=== PATIENT | male | born 1935 | race Caucasian/White ===

== ENCOUNTER 2019-04-25 08:29 | Emergency (ER) | payer MEDICARE ==
[~2019-04-25] VITALS: Ht 175.2 cm; Wt 75.9 kg
[~2019-04-25 08:29] MED LIST: CALC1CAP5 PO; CPR500T PO; DOCU-161 PO; DOXA2TAB2 PO; MULT-608 PO; PSYL1PAC15 PO; [UNRECOGNIZED DRUG - CODE] PO; [UNRECOGNIZED DRUG - REMARK]
--- NOTE | 2019-04-25 08:42 | ED Fall/Injury ---
General Stated Complaint: FALL Source: patient, family Exam Limitations: no limitations History of Present Illness Date Seen by Provider: Apr 25, 2019 Time Seen by Provider: 08:40 Initial Comments 83-year-old male presents with a laceration over his left eye. Patient reports that around 09/06/29 he was getting up out of bed when he thinks he lost his balance and fell and hit the corner of his nightstand right next to his bed. He had not completely stood up what happened. There is no loss of consciousness. There was mild bleeding at that time which was cleaned up by the [facility] with Steri-Strip. He denies any other injuries. He denies any chest pain, shortness of breath, dizziness or other symptoms prior to this event Allergies and Home Medications Allergies Coded Allergies: Penicillins (Verified Allergy, Unknown, 04/25/19) Home Medications Calcium Carbonate/Vitamin D3 1 Each Capsule, 2 EACH PO DAILY, (Reported) Ciprofloxacin 500 Mg Tablet, 1 TAB PO BID FOR INFECTION Prescribed by: ZAYDA HUTCHINS on 11/12/09 1202 Docusate Sodium 100 Mg Capsule, 200 MG PO HS, (Reported) Doxazosin Mesylate 2 Mg Tablet, 2 MG PO DAILY, (Reported) Hyoscyamine 0.15 Mg Tablet, 0.375 MG PO 1-2 BID, (Reported) Multivitamins 1 Tab Tablet, 1 TAB PO DAILY, (Reported) Psyllium 1 Pkt Packet, 1 PKT PO DAILY, (Reported) Patient Home Medication List Home Medication List Reviewed: Yes Review of Systems Review of Systems Constitutional: No chills, No fever Ears, Nose, Mouth, Throat: see HPI Respiratory: No cough, No short of breath Cardiovascular: No chest pain, No palpitations Gastrointestinal: No abdominal pain, No nausea, No vomiting Genitourinary: no symptoms reported Musculoskeletal: see HPI Skin: see HPI Past Ssszdfb-Gpqtag-Niyaih Hx Past Med/Social Hx: Reviewed Nursing Past Med/Soc Hx Past Medical History Reproductive Disorders: No Physical Exam Vital Signs Vital Signs - First Documented 04/25/19 08:43 Temp 36.5 Pulse 68 Resp 18 B/P (MAP) 144/74 (97) Pulse Ox 95 O2 Delivery Room Air Capillary Refill : Height, Weight, BMI Height: '" Weight: lbs. oz. kg; BMI Method:Stated General Appearance: WD/WN, no apparent distress HEENT: PERRL/EOMI, TMs normal, other (small laceration above the left eye approximately 2.5 cm with Steri-Strips are in place) Neck: non-tender Cardiovascular: regular rate, rhythm Respiratory: chest non-tender, lungs clear, normal breath sounds Gastrointestinal: non tender, soft Back: normal inspection Extremities: normal range of motion, non-tender Neurologic/Psychiatric: no motor/sensory deficits, alert, normal mood/affect, oriented x 3 Skin: other (3 cm laceration left eyebrow ) Procedures/Interventions Wound Location: Eye (left eyebrow ) Wound Length (cm): 3 Wound's Depth, Shape: superficial Wound Explored: no foreign body removed Other Closure Supply: Steri Strip 1/2", Wound Adhesive Progress Patient tolerated well with no immediate complications Progress/Results/Core Measures Results/Orders My Orders Orders - SHERRI POWELL DO Ct Head Wo (04/25/19 08:42) Dipht,Pertuss(Acell),Tet Adult (Boostrix (04/25/19 09:00) Vital Signs/I&O 04/25/19 08:43 Temp 36.5 Pulse 68 Resp 18 B/P (MAP) 144/74 (97) Pulse Ox 95 O2 Delivery Room Air Departure Impression Primary Impression: Laceration of left eyebrow without complication Qualified Codes: S01.112A - Laceration without foreign body of left eyelid and periocular area, initial encounter Disposition: 01 HOME, SELF-CARE Condition: Stable Departure-Patient Inst. Referrals: SELF,SIL MAYORGA (PCP/Family) Primary Care Physician Patient Instructions: Laceration Repair With Glue (DC) Add. Discharge Instructions: Emergency department focuses on treating and ruling out life-threatening diseases. Whenever possible, a diagnosis is given. However, most patients are given an impression based on their history, physical exam, and workup during your brief time in the ER. Information about probable diagnosis and other educational material has been provided. Please take the time to read and understand this information. It is very important that you follow up with a physician as discussed during the visit today. Failure to adhere to your follow-up instructions may lead to severe disability, injury, or so please make sure to keep your appointments or obtain one as requested. Please keep in mind the emergency department is not designed to your primary care or "family doctor" and nonurgent issues are best evaluated by an outpatient physician SHERRI POWELL DO Apr 25, 2019 08:42
[2019-04-25] MEDS ORDERED: TETANUS & DIPHTHERIA TOX,ADULT 0.5 ML (TENIVAC) IM ONE (08:45)
--- NOTE | 2019-04-25 08:59 | Diagnostic Imaging Report ---
PROCEDURE: CT head without contrast. TECHNIQUE: Multiple contiguous axial images were obtained through the brain without the use of intravenous contrast. Auto Exposure Controls were utilized during the CT exam to meet ALARA standards for radiation dose reduction. INDICATION: Fall. Scalp contusion overlying the left forehead. COMPARISON: None. FINDINGS: No large acute territorial ischemia, mass, or hemorrhage. Chronic microvascular disease is seen in the periventricular and subcortical white matter. The ventricles and cortical sulci are prominent, consistent with generalized volume loss. The basilar cisterns are patent and unremarkable. The calvarium is intact. A small scalp hematoma seen overlying the left forehead. The visualized paranasal sinuses are clear. IMPRESSION: 1. No large acute territorial ischemia, mass, or hemorrhage. 2. Chronic microvascular disease. 3. Generalized volume loss. Dictated by: Dictated on workstation # [id number]
[2019-04-25] MEDS ORDERED: TETANUS,DIPTH,PERTUSS P/F (BOOSTRIX) 0.5 ML VIAL IM ONE (09:00)
[2019-04-25 09:20] VITALS: BP 144/74
== END 2019-04-25 09:20 | disposition home or self-care (01) ==
LOC: EDUNIT# 08:29 → ER FS 08:31
DX: S01.112A Laceration without foreign body of left eyelid and periocular area, initial encounter (principal); Z88.0 Allergy status to penicillin; Z23 Encounter for immunization; W18.39XA Other fall on same level, initial encounter; W22.8XXA Striking against or struck by other objects, initial encounter
CPT/HCPCS: 70450; 90471; 90715

== ENCOUNTER 2019-07-01 09:31 | Emergency (ER) | payer MEDICARE ==
[~2019-07-01] VITALS: Ht 175 cm; Wt 70.0 kg
[2019-07-01] MEDS ORDERED: LIDOCAINE 1% INJ 20 ML 20 ML VIAL INJ STA (09:48)
--- NOTE | 2019-07-01 09:57 | ED Fall/Injury ---
General Chief Complaint: Trauma-Non Activation Stated Complaint: FALL Source: patient, EMS History of Present Illness Date Seen by Provider: Jul 01, 2019 Time Seen by Provider: 09:31 Initial Comments 83-year-old male presenting with complaints of having a fall at [facility]. He states that he had gotten up to go the bathroom and as he was maintaining out of the bathroom he had gotten to see and fell. He has a skin tear to his right hand and a laceration to his right eyebrow. He denies losing consciousness or getting knocked out. He has no new numbness or weakness. He has Parkinson's and has a tremor from that. He denies any difficulty with his vision since the fall. He has no nausea or vomiting. Allergies and Home Medications Allergies Coded Allergies: Penicillins (Verified Allergy, Unknown, 04/25/19) Home Medications Calcium Carbonate/Vitamin D3 1 Each Capsule, 2 EACH PO DAILY, (Reported) Ciprofloxacin 500 Mg Tablet, 1 TAB PO BID FOR INFECTION Prescribed by: ZYADA HUTCHINS on 11/12/09 1202 Docusate Sodium 100 Mg Capsule, 200 MG PO HS, (Reported) Doxazosin Mesylate 2 Mg Tablet, 2 MG PO DAILY, (Reported) Hyoscyamine 0.15 Mg Tablet, 0.375 MG PO 1-2 BID, (Reported) Multivitamins 1 Tab Tablet, 1 TAB PO DAILY, (Reported) Psyllium 1 Pkt Packet, 1 PKT PO DAILY, (Reported) Patient Home Medication List Home Medication List Reviewed: Yes Review of Systems Review of Systems Constitutional: No chills, No diaphoresis; dizziness (right before he fell); No fever Eyes: Denies Blindness, Denies Blurred Vision, Denies Drainage, Denies Decreased Acuity, Denies Photophobia Ears, Nose, Mouth, Throat: denies ear pain, denies ear discharge, denies nose pain, denies nose discharge, denies epistaxis Respiratory: No cough, No short of breath Cardiovascular: No chest pain, No palpitations Gastrointestinal: No abdominal pain, No diarrhea, No nausea, No vomiting Genitourinary: No dysuria, No pain Musculoskeletal: No back pain, No joint pain, No neck pain Skin: other (skin tear to right hand and laceration to right eyebrown since fall) Psychiatric/Neurological: Denies Headache, Denies Numbness; Tremors (chronic from parkinson's) Past Rmlesqk-Vygrqi-Jzhquu Hx Past Med/Social Hx: Reviewed Nursing Past Med/Soc Hx Patient Social History 2nd Hand Smoke Exposure: No Recent Foreign Travel: Yes Recent Hopitalizations: No Immunizations Up To Date Tetanus Booster (TDap): Unknown Seasonal Allergies Seasonal Allergies: No Past Medical History Surgeries: Yes (Hernia Repair) Tonsillectomy Respiratory: No Cardiac: Yes Hypertension 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 oz. 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, alert, normal mood/affect, oriented x 3 Skin: normal color, warm/dry Di Coma Score Best Eye Response: (4) Open Spontaneously Best Verbal Response: (5) Oriented Best Motor Response: (6) Obeys Commands [place] Total: 15 Procedures/Interventions Wound Location: Face (right eyebrow) Wound Length (cm): 1.4 Wound's Depth, Shape: sub Q Wound Explored: clean Anesthesia: 1% Lidocaine Volume Anesthetic (ccs): 3 Suture: Prolene Suture Size: 5-0 Number of Sutures: 4 Layer Closure?: 1 Sterile Dressing Applied?: Yes Progress After obtaining informed consent from the patient the wound was anesthetized with 1% plain lidocaine. Then using chlorhexidine and sterile saline the wound was cleaned with gauze. Used 5-0 Prolene to approximate the wound edges was simple interrupted stitches. He had a total of 4 stitches placed to approximate the wound edges. He tolerated the procedure well without any immediate complication. Counseled on follow-up and return precautions. Will apply antibiotic ointment and sterile dressing. Have the sutures removed in 5-7 days. Progress/Results/Core Measures Results/Orders Lab Results Laboratory Tests Test 07/01/19 09:45 07/01/19 11:15 Range/Units White Blood Count 8.6 4.3-11.0 10^3/uL Red Blood Count 4.34 L 4.35-5.85 10^6/uL Hemoglobin 13.5 13.3-17.7 G/DL Hematocrit 40 40-54 % Mean Corpuscular Volume 92 80-99 FL Mean Corpuscular Hemoglobin 31 25-34 PG Mean Corpuscular Hemoglobin Concent 34 32-36 G/DL Red Cell Distribution Width 13.2 10.0-14.5 % Platelet Count 242 130-400 10^3/uL Mean Platelet Volume 10.0 7.4-10.4 FL Neutrophils (%) (Auto) 64 42-75 % Lymphocytes (%) (Auto) 22 12-44 % Monocytes (%) (Auto) 10 0-12 % Eosinophils (%) (Auto) 3 0-10 % Basophils (%) (Auto) 1 0-10 % Neutrophils # (Auto) 5.6 1.8-7.8 X 10^3 Lymphocytes # (Auto) 1.9 1.0-4.0 X 10^3 Monocytes # (Auto) 0.8 0.0-1.0 X 10^3 Eosinophils # (Auto) 0.3 0.0-0.3 10^3/uL Basophils # (Auto) 0.1 0.0-0.1 10^3/uL Sodium Level 130 L 135-145 MMOL/L Potassium Level 4.2 3.6-5.0 MMOL/L Chloride Level 93 L 98-107 MMOL/L Carbon Dioxide Level 28 21-32 MMOL/L Anion Gap 9 5-14 MMOL/L Blood Urea Nitrogen 25 H 7-18 MG/DL Creatinine 0.96 0.60-1.30 MG/DL Estimat Glomerular Filtration Rate > 60 BUN/Creatinine Ratio 26 Glucose Level 103 70-105 MG/DL Calcium Level 9.6 8.5-10.1 MG/DL Corrected Calcium 9.6 8.5-10.1 MG/DL Total Bilirubin 0.5 0.1-1.0 MG/DL Aspartate Amino Transf (AST/SGOT) 11 5-34 U/L Alanine Aminotransferase (ALT/SGPT) < 5 0-55 U/L Alkaline Phosphatase 67 40-136 U/L Total Protein 7.1 6.4-8.2 GM/DL Albumin 4.0 3.2-4.5 GM/DL Urine Color YELLOW Urine Clarity CLEAR Urine pH 7.5 5-9 Urine Specific [place] 1.015 L 1.016-1.022 Urine Protein NEGATIVE NEGATIVE Urine Glucose (UA) NEGATIVE NEGATIVE Urine Ketones NEGATIVE NEGATIVE Urine Nitrite NEGATIVE NEGATIVE Urine Bilirubin NEGATIVE NEGATIVE Urine Urobilinogen 0.2 < = 1.0 MG/DL Urine Leukocyte Esterase NEGATIVE NEGATIVE Urine RBC (Auto) NEGATIVE NEGATIVE Urine RBC NONE /HPF Urine WBC 0-2 /HPF Urine Squamous Epithelial Cells NONE /HPF Urine Crystals NONE /LPF Urine Bacteria NEGATIVE /HPF Urine Casts NONE /LPF Urine Mucus NONE /LPF Urine Culture Indicated NO My Orders Orders - ABDOULAYE COYNE MD Cbc With Automated Diff (07/01/19 09:48) Comprehensive Metabolic Panel (07/01/19 09:48) Ekg Tracing (07/01/19 09:48) Continuous Ekg Monitoring (07/01/19 09:48) Ct Head/Cervical Spine Wo (07/01/19 09:48) Lidocaine 1% Inj 20 Ml (Xylocaine 1% Inj (07/01/19 09:48) Suture Set At Bedside (07/01/19 09:48) Dipht,Pertuss(Acell),Tet Adult (Boostrix (07/01/19 10:00) Ua Culture If Indicated (07/01/19 09:50) Ns Iv 500 Ml (Sodium Chloride 0.9%) (07/01/19 10:15) Medications Given in ED Current Medications Medications Dose Ordered Sig/Reyes Route Start Time Stop Time Status Last Admin Dose Admin Diphtheria/ Tetanus/Acell Pertussis 0.5 ml ONCE ONCE IM 2/27/20 10:00 07/01/19 10:01 DC 07/01/19 10:03 0.5 ML Vital Signs/I&O 07/01/19 07/01/19 09:55 11:57 Temp 36.2 36.2 Pulse 79 82 Resp 14 18 B/P (MAP) 148/84 (105) 121/62 Pulse Ox 98 99 O2 Delivery Room Air Room Air Progress Progress Note #1: Progress Note clean wounds and suture the laceration on right eyebrow, approximate wound edges of the skin tear right hand. CT head and cervical spine with him being dizzy and having the fall. This may be due to his parkinson's but will check for other signs of pathology on scan. Give small fluid bolus of 500 mL NS while working on repairing right eyebrow laceration. check basic labs and urine. Progress Note #2: Time: 10:[address] scan did not show any acute significant abnormality. He has chronic microvascular changes and degenerative changes. He tolerated the cleaning and repairing the laceration to his right eyebrow. The skin tear on his right hand was cleaned and had the wound edges approximated by the nurse and then a dressi ng was applied. Counseled to follow up in 5-7 days for removal of stitches from his eyebrow. Progress Note #3: Time: 11:39 Progress Note Chemistry and urinalysis are not showing any acute significant abnormality. He does have mild hyponatremia with a sodium of 130. However his creatinine is normal. His UA does not show signs of infection or hematuria. Advised to change positions slowly. Continue to use walker. Make sure he is drinking plenty of fluids. Check back with his primary provider. Stitches can be removed in 5-7 days. Initial ECG Impression Date: Jul 01, 2019 Initial ECG Impression Time: 10:28 Initial ECG Rate: 57 Initial ECG Rhythm: Normal Sinus Initial ECG Comparisson: No Previous ECG Available Comment Sinus rhythm with a heart rate of 57 bpm. He has artifact from his Parkinson's tremor. His QT interval is 477 ms and a QTc interval 465 ms. He has a right bundle branch and left anterior fascicular block. There is no prior tracing immediately available for comparison. He also has a ventricular premature complex. Diagnostic Imaging Diagonstic Imaging: CT Plain Films/CT/US/NM/MRI: c-spine, head Comments [facility] [employer], [place] NAME: ANANT GALE [facility] REC#: [id number] PT STATUS: REG ER : 1935 PHYSICIAN: ABDOULAYE COYNE MD ADMIT DATE: 07/01/19/ER FS Signed Date of Exam:07/01/19 CT HEAD/CERVICAL SPINE WO PROCEDURE: CT head and CT cervical spine without contrast. TECHNIQUE: Multiple contiguous axial images were obtained through the brain and cervical spine without the use of intravenous contrast. Sagittal and coronal reformations through the cervical spine were then performed. Auto Exposure Controls were utilized during the CT exam to meet ALARA standards for radiation dose reduction. INDICATION: Fall. Scalp laceration. Neck pain. COMPARISON: CT head on 04/25/2019. FINDINGS: CT head: No large acute territorial ischemia, mass, or hemorrhage. Chronic microvascular disease is seen in the periventricular and subcortical white matter. The ventricles and cortical sulci are prominent, consistent with generalized volume loss. The basilar cisterns are patent and unremarkable. The calvarium is intact. Scalp laceration is seen overlying the right forehead. The visualized paranasal sinuses are clear. CT cervical spine: No acute fracture or dislocation is seen in the cervical spine. No focal osseous lesions. Vertebral body heights are well-maintained. The craniocervical junction is well-maintained. Moderate degenerative changes are seen in the cervical spine with disc osteophyte complexes and uncovertebral arthropathy. Soft tissues of the neck are unremarkable. The included lung apices demonstrate chronic scarring changes. IMPRESSION: 1. No hemorrhage or focal intra-axial mass. No CT evidence of large acute territorial ischemia. 2. No acute fracture or dislocation in the cervical spine. 3. Chronic microvascular disease with generalized parenchymal volume loss. 4. Moderate degenerative changes in the cervical spine. Dictated by: Dictated on workstation # [id number] Dict: 07/01/19 1017 Trans: 07/01/19 1020 [facility] [id number] Interpreted by: GLENIS BURGESS DO Electronically signed by: GLENIS BURGESS DO 07/01/19 1020 Departure Impression Primary Impression: Laceration of eyebrow, right Qualified Codes: S01.111A - Laceration without foreign body of right eyelid and periocular area, initial encounter Additional Impressions: Fall at assisted Qualified Codes: W19.XXXA - Unspecified fall, initial encounter; Y92.129 - Unspecified place in assisted as the place of occurrence of the external cause Skin tear of right hand without complication Qualified Codes: S61.411A - Laceration without foreign body of right hand, initial encounter Disposition: 01 HOME, SELF-CARE Condition: Stable Departure-Patient Inst. Decision time for Depature: 11:41 Referrals: SELFSIL MD (PCP/Family) Primary Care Physician Patient Instructions: Laceration Repair With Stitches (DC), Minor Head Injury (DC), Preventing Falls in the Older Adult, Wound Care (DC) Add. Discharge Instructions: Keep wounds clean with soap and water and apply antibiotic ointment to eyebrow laceration 2-3 times a day as needed. Stitches can be removed after 5-7 days Stay well hydrated and change positions slowly to try and help prevent further falls/injury Check back with clinic for continued concerns/problems All discharge instructions reviewed with patient and/or family. Voiced understanding. ABDOULAYE COYNE MD Jul 01, 2019 09:57
[2019-07-01] MEDS ORDERED: TETANUS,DIPTH,PERTUSS P/F (BOOSTRIX) 0.5 ML VIAL IM ONE (10:00)
[2019-07-01 10:02] LABS: WHITE BLOOD COUNT 8.6 10^3/uL (4.3-11.0)
[2019-07-01 10:03] LABS: BASOPHILS % (AUTO) 1 % (0-10); EOSINOPHILS # (AUTO) 0.3 10^3/uL (0.0-0.3); EOSINOPHILS % (AUTO) 3 % (0-10); HEMATOCRIT 40 % (40-54); HEMOGLOBIN 13.5 G/DL (13.3-17.7); LYMPHOCYTES # (AUTO) 1.9 X 10^3 (1.0-4.0); LYMPHOCYTES % (AUTO) 22 % (12-44); MEAN CORPUSCULAR HEMOGLOBIN 31 PG (25-34); MEAN CORPUSCULAR HGB CONC 34 G/DL (32-36); MEAN CORPUSCULAR VOLUME 92 FL (80-99); MONOCYTES # (AUTO) 0.8 X 10^3 (0.0-1.0); MONOCYTES % (AUTO) 10 % (0-12); NEUTROPHILS # (AUTO) 5.6 X 10^3 (1.8-7.8); NEUTROPHILS % (AUTO) 64 % (42-75); PLATELET COUNT 242 10^3/uL (130-400); RED CELL DISTRIBUTION WIDTH 13.2 % (10.0-14.5)
[2019-07-01 10:04] LABS: BASOPHILS # (AUTO) 0.1 10^3/uL (0.0-0.1)
[2019-07-01] MEDS ORDERED: NS IV 500 ML 500 ML IV SCH (10:15)
--- NOTE | 2019-07-01 10:21 | Diagnostic Imaging Report ---
PROCEDURE: CT head and CT cervical spine without contrast. TECHNIQUE: Multiple contiguous axial images were obtained through the brain and cervical spine without the use of intravenous contrast. Sagittal and coronal reformations through the cervical spine were then performed. Auto Exposure Controls were utilized during the CT exam to meet ALARA standards for radiation dose reduction. INDICATION: Fall. Scalp laceration. Neck pain. COMPARISON: CT head on 04/25/2019. FINDINGS: CT head: No large acute territorial ischemia, mass, or hemorrhage. Chronic microvascular disease is seen in the periventricular and subcortical white matter. The ventricles and cortical sulci are prominent, consistent with generalized volume loss. The basilar cisterns are patent and unremarkable. The calvarium is intact. Scalp laceration is seen overlying the right forehead. The visualized paranasal sinuses are clear. CT cervical spine: No acute fracture or dislocation is seen in the cervical spine. No focal osseous lesions. Vertebral body heights are well-maintained. The craniocervical junction is well-maintained. Moderate degenerative changes are seen in the cervical spine with disc osteophyte complexes and uncovertebral arthropathy. Soft tissues of the neck are unremarkable. The included lung apices demonstrate chronic scarring changes. IMPRESSION: 1. No hemorrhage or focal intra-axial mass. No CT evidence of large acute territorial ischemia. 2. No acute fracture or dislocation in the cervical spine. 3. Chronic microvascular disease with generalized parenchymal volume loss. 4. Moderate degenerative changes in the cervical spine. Dictated by: Dictated on workstation # [id number]
[2019-07-01 11:09] LABS: CARBON DIOXIDE 28 MMOL/L (21-32); CHLORIDE 93 MMOL/L (98-107); POTASSIUM 4.2 MMOL/L (3.6-5.0); SODIUM 130 MMOL/L (135-145)
[2019-07-01 11:10] LABS: ALANINE AMINOTRANSFERASE < 5 U/L (0-55); ALKALINE PHOSPHATASE 67 U/L (40-136); BILIRUBIN,TOTAL 0.5 MG/DL (0.1-1.0); BUN/CREATININE RATIO 26; CALCIUM 9.6 MG/DL (8.5-10.1); CREATININE SERUM 0.96 MG/DL (0.60-1.30); GFR ESTIMATED > 60; GLUCOSE 103 MG/DL (70-105); TOTAL PROTEIN 7.1 GM/DL (6.4-8.2)
[2019-07-01 11:37] LABS: BACTERIA,URINE NEGATIVE /HPF; BILIRUBIN,URINE NEGATIVE (NEGATIVE); CLARITY,URINE CLEAR; COLOR,URINE YELLOW; GLUCOSE, URINE (UA) NEGATIVE (NEGATIVE); KETONES,URINE NEGATIVE (NEGATIVE); LEUKOCYTE ESTERASE ,URINE NEGATIVE (NEGATIVE); NITRITE,URINE NEGATIVE (NEGATIVE); PH,URINE 7.5 (5-9); PROTEIN,URINE NEGATIVE (NEGATIVE); WBC,URINE 0-2 /HPF
[2019-07-01 11:57] VITALS: BP 121/62
== END 2019-07-01 11:57 | disposition home or self-care (01) ==
LOC: EDUNIT# 09:31 → ER FS 09:38
DX: S01.111A Laceration without foreign body of right eyelid and periocular area, initial encounter (principal); S61.411A Laceration without foreign body of right hand, initial encounter; I10 Essential (primary) hypertension; R40.2142 Coma scale, eyes open, spontaneous, at arrival to emergency department; R40.2252 Coma scale, best verbal response, oriented, at arrival to emergency department; R40.2362 Coma scale, best motor response, obeys commands, at arrival to emergency department; Z85.46 Personal history of malignant neoplasm of prostate; Z88.0 Allergy status to penicillin; Z23 Encounter for immunization; W19.XXXA Unspecified fall, initial encounter; Y92.129 Unspecified place in nursing home as the place of occurrence of the external cause
CPT/HCPCS: 12011; 36415; 70450; 72125; 80053; 81000; 85025; 90715; 93005

== ENCOUNTER 2019-07-03 11:39 | Emergency (ER) | payer MEDICARE ==
[~2019-07-03] VITALS: Ht 175 cm; Wt 70.0 kg
--- NOTE | 2019-07-03 12:16 | ED General ---
General Chief Complaint: Abdominal/GI Problems Stated Complaint: LOW ABD PAIN,COUGH Source of Information: Patient, Family, Prison Records Exam Limitations: No Limitations History of Present Illness Date Seen by Provider: Jul 03, 2019 Time Seen by Provider: 12:00 Initial Comments 83-year-old male [facility] family. Family states that penitentiary was concerned that his urine was dark this morning and he might be dehydrated. Was given Gatorade as well as bottle water which he did drink prior to giving a urine sample just prior to arrival. Denies any abdominal pain, nausea vomiting or fever. Has had a cough for a short while was no difficulty breathing. Denies chest pain or shortness of air. History of Parkinson with multiple falls. Denies any new injury, recently seen here several days ago for contusion/laceration to his face which is healing well. Allergies and Home Medications Allergies Coded Allergies: Penicillins (Verified Allergy, Unknown, 04/25/19) Home Medications Calcium Carbonate/Vitamin D3 1 Each Capsule, 2 EACH PO DAILY, (Reported) Docusate Sodium 100 Mg Capsule, 200 MG PO HS, (Reported) Doxazosin Mesylate 2 Mg Tablet, 2 MG PO DAILY, (Reported) Hyoscyamine 0.15 Mg Tablet, 0.375 MG PO 1-2 BID, (Reported) Multivitamins 1 Tab Tablet, 1 TAB PO DAILY, (Reported) Psyllium 1 Pkt Packet, 1 PKT PO DAILY, (Reported) Patient Home Medication List Home Medication List Reviewed: Yes Review of Systems Review of Systems Constitutional: see HPI, dizziness; No fever; weakness Respiratory: cough; No hemoptysis, No phlegm, No short of breath Cardiovascular: No chest pain, No palpitations, No syncope Gastrointestinal: No abdominal pain, No diarrhea, No nausea, No vomiting Musculoskeletal: No back pain, No joint pain; muscle pain (R buttocks) Skin: No change in color, No rash Psychiatric/Neurological: Denies Numbness, Denies Paresthesia Past Pzetsul-Fmnjgr-Rdnmaf Hx Past Med/Social Hx: Reviewed Nursing Past Med/Soc Hx Patient Social History 2nd Hand Smoke Exposure: No Recent Hopitalizations: No Immunizations Up To Date Tetanus Booster (TDap): Unknown Seasonal Allergies Seasonal Allergies: No Past Medical History Surgeries: Yes (Hernia Repair) Tonsillectomy Respiratory: No Cardiac: Yes Hypertension 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 oz. kg; 22.00 BMI Method:Stated General Appearance: No Apparent Distress, WD/WN HEENT: PERRL/EOMI, TMs Normal, Normal ENT Inspection Neck: Non Tender, Supple Respiratory: Chest Non Tender, Lungs Clear, Normal Breath Sounds, No Accessory Muscle Use, No Respiratory Distress Cardiovascular: Regular Rate, Rhythm, No Edema Gastrointestinal: Normal Bowel Sounds, Non Tender, Soft Back: Normal Inspection, No CVA Tenderness, No Vertebral Tenderness Extremity: Normal Capillary Refill, Normal Inspection, Non Tender, No Calf Tenderness, No Pedal Edema Neurologic/Psychiatric: Alert, No Motor/Sensory Deficits, Normal Mood/Affect Procedures/Interventions Suture Size: 5-0 Progress/Results/Core Measures Suspected Sepsis SIRS Temperature: Pulse: Respiratory Rate: Blood Pressure / Mean: Results/Orders Lab Results Laboratory Tests Test 07/03/19 11:39 Range/Units Urine Color DARK YELLOW Urine Clarity CLEAR Urine pH 5.0 5-9 Urine Specific [place] >=1.030 1.016-1.022 Urine Protein NEGATIVE NEGATIVE Urine Glucose (UA) NEGATIVE NEGATIVE Urine Ketones TRACE H NEGATIVE Urine Nitrite NEGATIVE NEGATIVE Urine Bilirubin NEGATIVE NEGATIVE Urine Urobilinogen 0.2 < = 1.0 MG/DL Urine Leukocyte Esterase NEGATIVE NEGATIVE Urine RBC (Auto) NEGATIVE NEGATIVE Urine RBC NONE /HPF Urine WBC RARE /HPF Urine Squamous Epithelial Cells 0-2 /HPF Urine Crystals PRESENT H /LPF Urine Calcium Oxalate Crystals FEW H /LPF Urine Bacteria NEGATIVE /HPF Urine Casts NONE /LPF Urine Mucus SMALL H /LPF Urine Culture Indicated NO My Orders Orders - ROVENSTINE,MINOO L DO Ua Culture If Indicated (07/03/19 12:08) Vital Signs/I&O 07/03/19 07/03/19 11:55 13:49 Temp 37.0 37.1 Pulse 74 73 Resp 18 18 B/P (MAP) 157/70 (99) 145/64 Pulse Ox 91 95 O2 Delivery Room Air Room Air Capillary Refill : Progress Note : Progress Note Sent to ER for concern of dark urine this morning. Nursing staff had given them to drinks that he agreed readily to drink prior to coming to the ER. Able to tolerate by mouth without difficulty. Mild dehydration, noted of urine without any other abnormality. Discussed patient and family and encouraged increased fluid intake and follow-up with PCP in one week. Departure Impression Primary Impression: Dehydration Disposition: 01 HOME, SELF-CARE Condition: Stable Departure-Patient Inst. Referrals: SELF,SIL MAYORGA (PCP/Family) Primary Care Physician Patient Instructions: Dehydration, Adult (DC) MINOO IGLESIAS DO Jul 03, 2019 12:16
[2019-07-03 12:22] LABS: BACTERIA,URINE NEGATIVE /HPF; BILIRUBIN,URINE NEGATIVE (NEGATIVE); CALCIUM OXALATE CRYSTALS,UR FEW /LPF; CLARITY,URINE CLEAR; COLOR,URINE DARK YELLOW; GLUCOSE, URINE (UA) NEGATIVE (NEGATIVE); KETONES,URINE TRACE (NEGATIVE); LEUKOCYTE ESTERASE ,URINE NEGATIVE (NEGATIVE); NITRITE,URINE NEGATIVE (NEGATIVE); PROTEIN,URINE NEGATIVE (NEGATIVE); SQUAMOUS EPITHELIAL CELL,UR 0-2 /HPF; WBC,URINE RARE /HPF
--- NOTE | 2019-07-03 12:40 | NUR ---
Patient was departed from ER to family. Dgt/JORDEN, Tiff, listened to review of home instructions that are typed for [facility]. Copy of UA sent. Pt had acknowledged he had not drank as much as he told staff as he feels he is urinating all the time and wishes to not worsen this situation. Pt has numerous c/o's of different pain that dgt reports they are chronic like R knee pain.
[2019-07-03 13:49] VITALS: BP 145/64
== END 2019-07-03 12:40 | disposition home or self-care (01) ==
LOC: ER FS 11:39
DX: E86.0 Dehydration (principal); I10 Essential (primary) hypertension; Z88.0 Allergy status to penicillin; Z85.46 Personal history of malignant neoplasm of prostate
CPT/HCPCS: 81000; 99282

== ENCOUNTER → 2019-07-05 | Outpatient (CLI) | payer MEDICARE ==
--- NOTE | 2019-07-05 13:36 | Diagnostic Imaging Report ---
EXAMINATION: PA and lateral chest at 12:19 p.m. INDICATION: Cough. FINDINGS: The heart size is within normal limits and stable when compared to the prior CT chest exam of 04/07/2009. In the interval since the previous study, diffuse alveolar/interstitial pulmonary infiltrates have developed in both lungs. The possibility that these findings are related to pneumonia/atelectasis should be the primary concern. It is conceivable that these findings could also be entirely chronic in nature. By history, the patient has a diagnosis of prostate carcinoma. There is no definite mass within the lungs to indicate neoplastic disease. The mediastinum is not widened. The osseous structures are intact. IMPRESSION: 1. In the just over 10-year interval since the prior exam, diffuse alveolar/interstitial densities have developed in both lungs. While these could be entirely chronic in nature, the possibility that there is an element of acute pneumonia/atelectasis cannot be entirely excluded. Clinical follow-up is recommended. 2. There is no parenchymal lung mass to suggest malignancy. 3. If further imaging is desired, then CT of the chest will be recommended. Dictated by: Dictated on workstation # [id number]
== END ==
LOC: RAD FS 12:15
PROVIDERS: ATTEND Family Medicine
DX: J98.4 Other disorders of lung (principal); R06.02 Shortness of breath
CPT/HCPCS: 71046

== ENCOUNTER 2019-09-16 10:10 | Emergency (ER) | payer MEDICARE ==
[~2019-09-16] VITALS: Ht 175.2 cm; Wt 75.0 kg
--- NOTE | 2019-09-16 10:15 | NUR ---
Arrival to ED via [facility] from [facility] for "not acting his normal". Pt is awake and converses. Pt was witnessed to stand and transfer at his assisted living apt. Pt reports he was up alot last night with diarrhea. Pt states this has been a problem for about 3 weeks having diarrhea. No specimen obtainable at this time for testing. Pt answers several questions accurately and denies any pain.
[2019-09-16] MEDS ORDERED: NS IV 500 ML 500 ML IV STA (10:17)
--- NOTE | 2019-09-16 10:21 | ED General ---
General Stated Complaint: AMS Source of Information: Patient, EMS, EMS Notes Reviewed, RN/MD, RN Notes Reviewed Exam Limitations: No Limitations History of Present Illness Date Seen by Provider: September 16, 2019 Time Seen by Provider: 10:19 Initial Comments This patient is a 83-year-old male that presents to the emergency department for generalized weakness. Patient states she's had diarrhea since yesterday was up most are not with diarrhea and feels tired today. long-term requesting evaluation. Patient blood pressure stable 140/87 however does P Levit tachycardic to 120s. Patient is getting IV fluid bolus this time via EMS we will add an additional 500 mL bolus of normal saline and evaluate her further as needed. Timing/Duration: 1 Day Severity: Moderate Associated Systoms: Denies Symptoms Allergies and Home Medications Allergies Coded Allergies: Penicillins (Verified Allergy, Unknown, 04/25/19) Home Medications Calcium Carbonate/Vitamin D3 1 Each Capsule, 2 EACH PO DAILY, (Reported) Docusate Sodium 100 Mg Capsule, 200 MG PO HS, (Reported) Doxazosin Mesylate 2 Mg Tablet, 2 MG PO DAILY, (Reported) Hyoscyamine 0.15 Mg Tablet, 0.375 MG PO 1-2 BID, (Reported) Multivitamins 1 Tab Tablet, 1 TAB PO DAILY, (Reported) Psyllium 1 Pkt Packet, 1 PKT PO DAILY, (Reported) Patient Home Medication List Home Medication List Reviewed: Yes Review of Systems Review of Systems Constitutional: No no symptoms reported; see HPI; No chills, No diaphoresis, No dizziness, No fever, No malaise; weakness; No weight gain, No weight loss, No other EENTM: No see HPI, No no symptoms reported, No ear discharge, No hearing loss, No ear pain, No blurred vision, No double vision, No eye pain, No tearing, No vision loss, No dental problems, No hoarseness, No mouth pain, No mouth swelling, No epistaxis, No nose congestion, No nose pain, No throat pain, No throat swelling, No other Respiratory: No no symptoms reported, No see HPI, No cough, No dyspnea on exertion, No hemoptysis, No orthopnea, No phlegm, No short of breath, No stridor, No wheezing, No other Cardiovascular: No no symptoms reported, No see HPI, No chest pain, No edema, No Hx of Intervention, No palpitations, No syncope, No vascular heart diseas, No other Gastrointestinal: No RUQ, No LUQ, No RLQ, No LLQ, No no symptoms reported; see HPI; No abdominal pain, No constipation; diarrhea; No dysphagia, No hematemesis, No heartburn, No jaundice, No loss of appetite, No melena, No nausea, No vomiting, No other Genitourinary: No no symptoms reported, No see HPI, No decreased output, No discharge, No dysuria, No frequency, No hematuria, No hesitancy, No incontinence, No nocturia, No pain, No other Musculoskeletal: No no symptoms reported, No see HPI, No back pain, No gout, No joint pain, No joint swelling, No muscle pain, No muscle stiffness, No muscle cramps, No muscle twitching, No muscle weakness, No neck pain, No other Skin: No no symptoms reported, No see HPI, No change in color, No change in hair/nails, No dryness, No hx of skin cancer, No lesions, No lumps, No pruritus, No rash, No other Psychiatric/Neurological: Denies No Symptoms Reported, Denies See HPI, Denies Anxiety, Denies Depressed, Denies Emotional Problems, Denies Headache, Denies Numbness, Denies Paresthesia, Denies Pre-Existing Deficit, Denies Seizure, Denies Tingling, Denies Tremors, Denies Weakness, Denies Other All Other Systems Reviewed Negative Unless Noted: Yes Past Qmolrwb-Lsqipa-Csojdf Hx Patient Social History 2nd Hand Smoke Exposure: No Recent Hopitalizations: No Immunizations Up To Date Tetanus Booster (TDap): Unknown Seasonal Allergies Seasonal Allergies: No Past Medical History Surgeries: Yes (Hernia Repair) Tonsillectomy Respiratory: No Cardiac: Yes Hypertension 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 oz. kg; 22.00 BMI Method:Stated General Appearance: No Apparent Distress, WD/WN HEENT: PERRL/EOMI, TMs Normal, Normal ENT Inspection, Pharynx Normal Neck: Full Range of Motion, Normal Inspection, Non Tender, Supple, Carotid Bruit Respiratory: Chest Non Tender, Lungs Clear, Normal Breath Sounds, No Accessory Muscle Use, No Respiratory Distress Cardiovascular: Regular Rate, Rhythm, No Edema, No Gallop, No JVD, No Murmur, Normal Peripheral Pulses Gastrointestinal: Normal Bowel Sounds, No Organomegaly, No Pulsatile Mass, Non Tender, Soft Back: Normal Inspection, No CVA Tenderness, No Vertebral Tenderness Extremity: Normal Capillary Refill, Normal Inspection, Normal Range of Motion, Non Tender, No Calf Tenderness, No Pedal Edema Neurologic/Psychiatric: Alert, Oriented x3, No Motor/Sensory Deficits, Normal Mood/Affect Skin: Normal Color, Warm/Dry Procedures/Interventions Suture Size: 5-0 Progress/Results/Core Measures Suspected Sepsis SIRS Temperature: Pulse: Respiratory Rate: Laboratory Tests 09/16/19 10:30: White Blood Count 10.0 Blood Pressure / Mean: Laboratory Tests 09/16/19 10:30: Creatinine 0.95, Platelet Count 261, Total Bilirubin 0.8 Results/Orders Lab Results Laboratory Tests Test 09/16/19 10:30 09/16/19 11:05 Range/Units White Blood Count 10.0 4.3-11.0 10^3/uL Red Blood Count 4.19 L 4.35-5.85 10^6/uL Hemoglobin 12.9 L 13.3-17.7 G/DL Hematocrit 37 L 40-54 % Mean Corpuscular Volume 89 80-99 FL Mean Corpuscular Hemoglobin 31 25-34 PG Mean Corpuscular Hemoglobin Concent 35 32-36 G/DL Red Cell Distribution Width 13.1 10.0-14.5 % Platelet Count 261 130-400 10^3/uL Mean Platelet Volume 9.7 7.4-10.4 FL Neutrophils (%) (Auto) 79 H 42-75 % Lymphocytes (%) (Auto) 11 L 12-44 % Monocytes (%) (Auto) 9 0-12 % Eosinophils (%) (Auto) 1 0-10 % Basophils (%) (Auto) 0 0-10 % Neutrophils # (Auto) 7.9 H 1.8-7.8 X 10^3 Lymphocytes # (Auto) 1.1 1.0-4.0 X 10^3 Monocytes # (Auto) 0.9 0.0-1.0 X 10^3 Eosinophils # (Auto) 0.1 0.0-0.3 10^3/uL Basophils # (Auto) 0.0 0.0-0.1 10^3/uL Sodium Level 128 L 135-145 MMOL/L Potassium Level 4.0 3.6-5.0 MMOL/L Chloride Level 89 L 98-107 MMOL/L Carbon Dioxide Level 29 21-32 MMOL/L Anion Gap 10 5-14 MMOL/L Blood Urea Nitrogen 20 H 7-18 MG/DL Creatinine 0.95 0.60-1.30 MG/DL Estimat Glomerular Filtration Rate > 60 BUN/Creatinine Ratio 21 Glucose Level 117 H 70-105 MG/DL Calcium Level 9.5 8.5-10.1 MG/DL Corrected Calcium 9.8 8.5-10.1 MG/DL Total Bilirubin 0.8 0.1-1.0 MG/DL Aspartate Amino Transf (AST/SGOT) 14 5-34 U/L Alanine Aminotransferase (ALT/SGPT) 5 0-55 U/L Alkaline Phosphatase 52 40-136 U/L Total Protein 6.7 6.4-8.2 GM/DL Albumin 3.6 3.2-4.5 GM/DL Amylase Level 68 25-125 U/L Lipase 18 8-78 U/L Urine Color YELLOW Urine Clarity CLEAR Urine pH 6.0 5-9 Urine Specific [place] 1.020 1.016-1.022 Urine Protein NEGATIVE NEGATIVE Urine Glucose (UA) NEGATIVE NEGATIVE Urine Ketones 1+ H NEGATIVE Urine Nitrite NEGATIVE NEGATIVE Urine Bilirubin NEGATIVE NEGATIVE Urine Urobilinogen 0.2 < = 1.0 MG/DL Urine Leukocyte Esterase NEGATIVE NEGATIVE Urine RBC (Auto) NEGATIVE NEGATIVE Urine RBC RARE /HPF Urine WBC 0-2 /HPF Urine Squamous Epithelial Cells 2-5 /HPF Urine Crystals NONE /LPF Urine Bacteria NEGATIVE /HPF Urine Casts NONE /LPF Urine Mucus NEGATIVE /LPF Urine Culture Indicated NO My Orders Orders - RAYMUNDO JUSTICE MD Comprehensive Metabolic Panel (09/16/19 10:17) Lipase (09/16/19 10:17) Amylase (09/16/19 10:17) Ua Culture If Indicated (09/16/19 10:17) Ed Iv/Invasive Line Start (09/16/19 10:17) Acute Abd Series (09/16/19 10:17) Cbc With Automated Diff (09/16/19 10:17) C Difficile Ag + Toxin A/B. (09/16/19 10:17) Ns Iv 500 Ml (Sodium Chloride 0.9%) (09/16/19 10:17) Orthostatic Vital Signs (Adult (09/16/19 10:17) Vital Signs/I&O 09/16/19 10:15 Temp 36.7 Pulse 83 Resp 22 B/P (MAP) 141/66 (91) Pulse Ox 98 O2 Delivery Room Air Capillary Refill : Progress Note : Time: 11:50 Progress Note Negative evaluation thus far in the emergency department for any acute findings. Patient has significant Parkinson's disease and does alternate the operations lead but his baseline blood pressure 152/68 and baseline heart rate around 80 to 90s. Patient does not appear to be acutely ill. Patient does have a sodium level of 128. I did discuss at length with [facility] physician Dr. Gale for the patient's chronic conditions. She agrees the patient be discharged safely back to the detention. She will contact patient's primary care physician Dr. hobbs discuss repeat labs in 2-3 days. Patient has had no diarrhea in the emergency department. Patient be discharged back to the detention. Is awake alert at his mental baseline. Departure Impression Primary Impression: Diarrhea Additional Impressions: Mild dehydration Parkinsons disease Hyponatremia Disposition: 03 SNF Condition: Stable Departure-Patient Inst. Decision time for Depature: 11:52 Referrals: SIL HOBBS MD (PCP/Family) Primary Care Physician Patient Instructions: Dehydration, Adult (DC), Parkinson Disease (DC), Hyponatremia Add. Discharge Instructions: Encourage by mouth fluids. Antidiarrheal medication [id number] per PCP if indicated. Patient needs a repeat BMP in 2-3 days. Watch closely for issues with falls. Due to patient's Parkinson's disease. RAYMUNDO JUSTICE MD September 16, 2019 10:21
[2019-09-16 10:44] LABS: HEMATOCRIT 37 % (40-54); HEMOGLOBIN 12.9 G/DL (13.3-17.7); MEAN CORPUSCULAR HEMOGLOBIN 31 PG (25-34); MEAN CORPUSCULAR HGB CONC 35 G/DL (32-36); MEAN CORPUSCULAR VOLUME 89 FL (80-99); MEAN PLATELET VOLUME 9.7 FL (7.4-10.4); PLATELET COUNT 261 10^3/uL (130-400); RED CELL DISTRIBUTION WIDTH 13.1 % (10.0-14.5)
[2019-09-16 10:45] LABS: BASOPHILS % (AUTO) 0 % (0-10); EOSINOPHILS # (AUTO) 0.1 10^3/uL (0.0-0.3); EOSINOPHILS % (AUTO) 1 % (0-10); LYMPHOCYTES # (AUTO) 1.1 X 10^3 (1.0-4.0); LYMPHOCYTES % (AUTO) 11 % (12-44); MONOCYTES # (AUTO) 0.9 X 10^3 (0.0-1.0); MONOCYTES % (AUTO) 9 % (0-12); NEUTROPHILS # (AUTO) 7.9 X 10^3 (1.8-7.8); NEUTROPHILS % (AUTO) 79 % (42-75)
--- OUTSIDE RECORDS SUMMARY | 2019-09-16 10:54 | XMS REPORT | Continuity of Care Document ---
Author Organization Unknown Address Unknown Phone Unavailable Allergies Active Description Code Type Severity Reaction Onset Reported/Identified Relationship to Patient Clinical Status Yes Penicillins [id number] Drug Aller gy Unknown N/A 04/25/2019 Medications There is no data. Problems Date Dx Coded Attending Type Code Diagnosis Diagnosed By 04/25/2019 POWELL DO, SHERRI L Ot S01.112A LACERATION W/O FB OF LEFT EYELID AND PER 04/25/2019 POWELL DO, SHERRI L Ot W18.39XA OTHER FALL ON SAME LEVEL, INITIAL ENCOUN 04/25/2019 POWELL DO, SHERRI L Ot W22.8XXA STRIKING AGAINST OR STRUCK BY OTHER OBJE 04/25/2019 POWELL DO, SHERRI L Ot Z23 ENCOUNTER FOR IMMUNIZATION 04/25/2019 POWELL DO, SHERRI L Ot Z88.0 ALLERGY STATUS TO PENICILLIN 04/27/2019 POWELL DO, SHERRI L Ot S01.112A LACERATION W/O FB OF LEFT EYELID AND PER 04/27/2019 POWELL DO, SHERRI L Ot W18.39XA OTHER FALL ON SAME LEVEL, INITIAL ENCOUN 04/27/2019 POWELL DO, SHERRI L Ot W22.8XXA STRIKING AGAINST OR STRUCK BY OTHER OBJE 04/27/2019 POWELL DO, SHERRI L Ot Z23 ENCOUNTER FOR IMMUNIZATION 04/27/2019 POWELL DO, SHERRI L Ot Z88.0 ALLERGY STATUS TO PENICILLIN 07/01/2019 ABDOULAYE COYNE MD Ot I10 ESSENTIAL (PRIMARY) HYPERTENSION 07/01/2019 ABDOULAYE COYNE MD, Ot R40.2142 COMA SCALE, EYES OPEN, SPONTANEOUS, EMR 07/01/2019 ABDOULAYE COYNE MD, Ot R40.2252 COMA SCALE, BEST VERBAL RESPONSE, ORIENT 07/01/2019 ABDOULAYE COYNE MD, Ot R40.2362 COMA SCALE, BEST MOTOR RESPONSE, OBEYS C 07/01/2019 ABDOULAYE COYNE MD, Ot S01.111A LACERATION W/O FB OF RIGHT EYELID AND PE 07/01/2019 ABDOULAYE COYNE MD Ot S61.411A LACERATION WITHOUT FOREIGN BODY OF RIGHT 07/01/2019 ABDOULAYE COYNE MD Ot W19.XXXA UNSPECIFIED FALL, INITIAL ENCOUNTER 07/01/2019 ABDOULAYE COYNE MD Ot Y92.[address] [facility] [address] 07/01/2019 ABDOULAYE COYNE MD Ot Z23 ENCOUNTER FOR IMMUNIZATION 07/01/2019 ABDOULAYE COYNE MD Ot Z85.4 6 PERSONAL HISTORY OF MALIGNANT NEOPLASM O 07/01/2019 ABDOULAYE COYNE MD Ot Z88.0 ALLERGY STATUS TO PENICILLIN 07/03/2019 ROVENSTINE DO, MINOO L Ot E86.0 DEHYDRATION 07/03/2019 ROVENSTINE DO, MINOO L Ot I10 ESSENTIAL (PRIMARY) HYPERTENSION 07/03/2019 ROVENSTINE DO, MINOO L Ot R10.30 LOWER ABDOMINAL PAIN, UNSPECIFIED 07/03/2019 ROVENSTINE DO, MINOO L Ot Z85.46 PERSONAL HISTORY OF MALIGNANT NEOPLASM O 07/03/2019 ROVENSTINE DO, MINOO L Ot Z88.0 ALLERGY STATUS TO PENICILLIN 07/05/2019 ABDOULAYE COYNE MD Ot I10 ESSENTIAL (PRIMARY) HYPERTENSION 07/05/2019 ABDOULAYE COYNE MD Ot R40.2142 COMA SCALE, EYES OPEN, SPONTANEOUS, EMR 07/05/2019 ABDOULAYE COYNE MD, Ot R40.2252 COMA SCALE, BEST VERBAL RESPONSE, ORIENT 07/05/2019 ABDOULAYE COYNE MD, Ot R40.2362 COMA SCALE, BEST MOTOR RESPONSE, OBEYS C 07/05/2019 ABDOULAYE COYNE MD Ot S01.111A LACERATION W/O FB OF RIGHT EYELID AND PE 07/05/2019 ABDOULAYE COYNE MD Ot S61.411A LACERATION WITHOUT FOREIGN BODY OF RIGHT 07/05/2019 ABDOULAYE COYNE MD, Ot W19.XXXA UNSPECIFIED FALL, INITIAL ENCOUNTER 07/05/2019 ABDOULAYE COYNE MD Ot Y92.[address] [facility] 07/05/2019 ABDOULAYE COYNE MD Ot Z23 ENCOUNTER FOR IMMUNIZATION 07/05/2019 ABDOULAYE COYNE MD Ot Z85.4 6 PERSONAL HISTORY OF MALIGNANT NEOPLASM O 07/05/2019 ABDOULAYE COYNE MD, Ot Z88.0 ALLERGY STATUS TO PENICILLIN 07/06/2019 ROVENSTINE DO, MINOO L Ot E86.0 DEHYDRATION 07/06/2019 ROVENSTINE DO, MINOO L Ot I10 ESSENTIAL (PRIMARY) HYPERTENSION 07/06/2019 ROVENSTINE DO, MINOO L Ot R10.30 LOWER ABDOMINAL PAIN, UNSPECIFIED 07/06/2019 ROVENSTINE DO, MINOO L Ot Z85.46 PERSONAL HISTORY OF MALIGNANT NEOPLASM O 07/06/2019 ROVENSTINE DO, MINOO L Ot Z88.0 ALLERGY STATUS TO PENICILLIN 07/08/2019 ABDOULAYE COYNE MD Ot I10 ESSENTIAL (PRIMARY) HYPERTENSION 07/08/2019 ABDOULAYE COYNE MD Ot R40.2142 COMA SCALE, EYES OPEN, SPONTANEOUS, EMR 07/08/2019 ABDOULAYE COYNE MD, Ot R40.2252 COMA SCALE, BEST VERBAL RESPONSE, ORIENT 07/08/2019 ABDOULAYE COYNE MD, Ot R40.2362 COMA SCALE, BEST MOTOR RESPONSE, OBEYS C 07/08/2019 ABDOULAYE COYNE MD Ot S01.111A LACERATION W/O FB OF RIGHT EYELID AND PE 07/08/2019 ABDOULAYE COYNE MD Ot S61.411A LACERATION WITHOUT FOREIGN BODY OF RIGHT 07/08/2019 ABDOULAYE COYNE MD Ot W19.XXXA UNSPECIFIED FALL, INITIAL ENCOUNTER 07/08/2019 ABDOULAYE COYNE MD Ot Y92.[address] [facility]ACE 07/08/2019 ABDOULAYE COYNE MD Ot Z23 ENCOUNTER FOR IMMUNIZATION 07/08/2019 ABDOULAYE COYNE MD, Ot Z85.4 6 PERSONAL HISTORY OF MALIGNANT NEOPLASM O 07/08/2019 ABDOULAYE COYNE MD, Ot Z88.0 ALLERGY STATUS TO PENICILLIN 07/29/2019 JUAN MANUEL MANZO MD R Ot 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 07/29/2019 JUAN MANUEL MANZO MD Ot R06.0 2 SHORTNESS OF BREATH 08/09/2019 JUAN MANUEL MANZO MD Ot 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 08/09/2019 JUAN MANUEL MANZO MD R Ot R06.0 2 SHORTNESS OF BREATH Procedures There is no data. Results Test Result Range [facility] - 10/09/18 14:05 GLUCOSE 102 mg/dL 65-139 UREA NITROGEN (BUN) 25 mg/dL 7-25 CREATININE 1.11 mg/dL 0.70-1.11 eGFR NON-AFR. UGANDAN 61 mL/min/1.73m2 > OR = 60 eGFR 70 mL/min/1.73m2 > OR = 60 BUN/CREATININE RATIO NOT APPLICABLE (calc) 6-22 SODIUM 126 mmol/L 135-146 POTASSIUM 4.9 mmol/L 3.5-5.3 CHLORIDE 91 mmol/L 98-110 CARBON DIOXIDE 24 mmol/L 20-32 CALCIUM 9.8 mg/dL 8.6-10.3 PROTEIN, TOTAL 6.7 g/dL 6.1-8.1 ALBUMIN 4.1 g/dL 3.6-5.1 GLOBULIN 2.6 g/dL (calc) 1.9-3.7 ALBUMIN/GLOBULIN RATIO 1.6 (calc) 1.0-2. 5 BILIRUBIN, TOTAL 1.0 mg/dL 0.2-1.2 ALKALINE PHOSPHATASE 53 U/L 40-115 AST 12 U/L 10-35 ALT 5 U/L 9-46 [facility] - 10/29/18 08:50 GLUCOSE 90 mg/dL 65-99 UREA NITROGEN (BUN) 24 mg/dL 7-25 CREATININE 1.04 mg/dL 0.70-1.11 eGFR NON-AFR. UGANDAN 66 mL/min/1.73m2 > OR = 60 eGFR 76 mL/min/1.73m2 > OR = 60 BUN/CREATININE RATIO NOT APPLICABLE (calc) 6-22 SODIUM 133 mmol/L 135-146 POTASSIUM 4.6 mmol/L 3.5-5.3 CHLORIDE 100 mmol/L 98-110 CARBON DIOXIDE 29 mmol/L 20-32 CALCIUM 9.4 mg/dL 8.6-10.3 PROTEIN, TOTAL 6.5 g/dL 6.1-8.1 ALBUMIN 3.8 g/dL 3.6-5.1 GLOBULIN 2.7 g/dL (calc) 1.9-3.7 ALBUMIN/GLOBULIN RATIO 1.4 (calc) 1.0-2. 5 BILIRUBIN, TOTAL 0.6 mg/dL 0.2-1.2 ALKALINE PHOSPHATASE 61 U/L 40-115 AST 13 U/L 10-35 ALT 5 U/L 9-46 CMP - 05/06/19 14:49 GLUCOSE 98 mg/dL 65-99 UREA NITROGEN (BUN) 26 mg/dL 7-25 CREATININE 1.21 mg/dL 0.70-1.11 eGFR NON-AFR. UGANDAN 54 mL/min/1.73m2 > OR = 60 eGFR 63 mL/min/1.73m2 > OR = 60 BUN/CREATININE RATIO 21 (calc) 6-22 SODIUM 135 mmol/L 135-146 POTASSIUM 4.7 mmol/L 3.5-5.3 CHLORIDE 98 mmol/L 98-110 CARBON DIOXIDE 29 mmol/L 20-32 CALCIUM 9.4 mg/dL 8.6-10.3 PROTEIN, TOTAL 6.5 g/dL 6.1-8.1 ALBUMIN 3.8 g/dL 3.6-5.1 GLOBULIN 2.7 g/dL (calc) 1.9-3.7 ALBUMIN/GLOBULIN RATIO 1.4 (calc) 1.0-2. 5 BILIRUBIN, TOTAL 0.6 mg/dL 0.2-1.2 ALKALINE PHOSPHATASE 66 U/L 40-115 AST 11 U/L 10-35 ALT 6 U/L CBC - 05/06/19 14:49 WHITE BLOOD CELL COUNT 8.4 Thousand/uL 3 .8-10.8 RED BLOOD CELL COUNT 4.08 Million/uL 4.2 0-5.80 HEMOGLOBIN 12.9 g/dL 13.2-17.1 HEMATOCRIT 38.0 % 38.5-50.0 MCV 93.1 fL 80.0-100.0 MCH 31.6 pg 27.0-33.0 MCHC 33.9 g/dL 32.0-36.0 RDW 12.7 % 11.0-15.0 PLATELET COUNT 252 Thousand/uL 140-400 MPV 10.5 fL 7.5-12.5 ABSOLUTE NEUTROPHILS 5636 cells/uL 1500- 7800 ABSOLUTE LYMPHOCYTES 1781 cells/uL 850-3 900 ABSOLUTE MONOCYTES 680 cells/uL 200-950 ABSOLUTE EOSINOPHILS 218 cells/uL 15-500 ABSOLUTE BASOPHILS 84 cells/uL 0-200 NEUTROPHILS 67.1 % NRG LYMPHOCYTES 21.2 % NRG MONOCYTES 8.1 % NRG EOSINOPHILS 2.6 % NRG BASOPHILS 1.0 % NRG Complete blood count (CBC) with automate d white blood cell (WBC) differential - 07/01/19 09:45 Blood leukocytes automated count (number/volume) 8.6 10*3/uL 4.3-11.0 Blood erythrocytes automated count (number/volume) 4.34 10*6/uL 4.35-5.85 Venous blood hemoglobin measurement (mass/volume) 13.5 g/dL 13.3-17.7 Blood hematocrit (volume fraction) 40 % 40-54 Automated erythrocyte mean corpuscular volume 92 [ foz_us] 80-99 Automated erythrocyte mean corpuscular h emoglobin (mass per erythrocyte) 31 pg 25-34 Automated erythrocyte mean corpuscular h emoglobin concentration measurement (mass/volume) 34 g/dL 32-36 Automated erythrocyte distribution width ratio 13. 2 % 10.0- 14.5 Automated blood platelet count (count/volume) 242 10*3/uL 130-400 Automated blood platelet mean volume measurement 10.0 [foz_us] 7.4-10.4 Automated blood neutrophils/100 leukocytes 64 % 42-75 Automated blood lymphocytes/100 leukocytes 22 % 12-44 Blood monocytes/100 leukocytes 10 % 0-12 Automated blood eosinophils/100 leukocytes 3 % 0-10 Automated blood basophils/100 leukocytes 1 % 0-10 Blood neutrophils automated count (number/volume) 5.6 10*3 1.8-7.8 Blood lymphocytes automated count (number/volume) 1.9 10*3 1.0-4.0 Blood monocytes automated count (number/volume) 0. 8 10*3 0.0-1.0 Automated eosinophil count 0.3 10*3/uL 0 .0-0.3 Automated blood basophil count (count/volume) 0.1 10*3/uL 0.0-0.1 Comprehensive metabolic panel - 07/01/19 09:45 Serum or plasma sodium measurement (moles/volume) 130 mmol/L 135-145 Serum or plasma potassium measurement (moles/volume) 4.2 mmol/L 3.6-5.0 Serum or plasma chloride measurement (moles/volume) 93 mmol/L 98-107 Carbon dioxide 28 mmol/L 21-32 Serum or plasma anion gap determination (moles/volume) 9 mmol/L 5-14 Serum or plasma urea nitrogen measurement (mass/volume ) 25 mg/dL 7-18 Serum or plasma creatinine measurement (mass/volume) 0.96 mg/dL 0.60-1.30 Serum or plasma urea nitrogen/creatinine mass ratio 26 NRG Serum or plasma creatinine measurement w ith calculation of estimated glomerular filtration rate > NRG Serum or plasma glucose measurement (mass/volume) 103 mg/dL 70-105 Serum or plasma calcium measurement (mass/volume) 9.6 mg/dL 8.5-10.1 Serum or plasma total bilirubin measurement (mass/volu me) 0.5 mg/dL 0.1-1.0 Serum or plasma alkaline phosphatase rio surement (enzymatic activity/volume) 67 U/L 40-136 Serum or plasma aspartate aminotransfera se measurement (enzymatic activity/volume) 11 U/L 5-34 Serum or plasma alanine aminotransferase measurement (enzymatic activity/volume) < U/L 0-55 Serum or plasma protein measurement (mass/volume) 7.1 g/dL 6.4-8.2 Serum or plasma albumin measurement (mass/volume) 4.0 g/dL 3.2-4.5 CALCIUM CORRECTED 9.6 mg/dL 8.5-10.1 Complete urinalysis with reflex to cultu re - 07/01/19 11:15 Urine color determination YELLOW NRG Urine clarity determination CLEAR NR G Urine pH measurement by test strip 7.5 5-9 Specific gravity of urine by test strip 1.015 1.016-1.022 Urine protein assay by test strip, semi-quantitative NEGATIVE NEGATIVE Urine glucose detection by automated test strip NE GATIVE NEGATIVE Erythrocytes detection in urine sediment by light micr oscopy NEGATIVE NEGATIVE Urine ketones detection by automated test strip NE GATIVE NEGATIVE Urine nitrite detection by test strip NEGATIVE NEGATIVE Urine total bilirubin detection by test strip NEGA TIVE NEGATIVE Urine urobilinogen measurement by automated test strip (mass/volume) 0.2 mg/dL < = 1.0 Urine leukocyte esterase detection by dipstick NEG ATIVE NEGATIVE Automated urine sediment erythrocyte cou nt by microscopy (number/high power field) NONE NRG Automated urine sediment leukocyte count by microscopy (number/high power field) [HPF] NRG Bacteria detection in urine sediment by light microsco py NEGATIVE NRG Squamous epithelial cells detection in u rine sediment by light microscopy NONE NRG Crystals detection in urine sediment by light microsco py NONE NRG Casts detection in urine sediment by light microscopy NONE NRG Mucus detection in urine sediment by light microscopy NONE NRG Complete urinalysis with reflex to culture NO NRG Complete urinalysis with reflex to cultu re - 07/03/19 11:39 Urine color determination DARK YELLOW N RG Urine clarity determination CLEAR NR G Urine pH measurement by test strip 5.0 5-9 Specific gravity of urine by test strip >= 1.016-1.022 Urine protein assay by test strip, semi-quantitative NEGATIVE NEGATIVE Urine glucose detection by automated test strip NE GATIVE NEGATIVE Erythrocytes detection in urine sediment by light micr oscopy NEGATIVE NEGATIVE Urine ketones detection by automated test strip TR SUNNY NEGATIVE Urine nitrite detection by test strip NEGATIVE NEGATIVE Urine total bilirubin detection by test strip NEGA TIVE NEGATIVE Urine urobilinogen measurement by automated test strip (mass/volume) 0.2 mg/dL < = 1.0 Urine leukocyte esterase detection by dipstick NEG ATIVE NEGATIVE Automated urine sediment erythrocyte cou nt by microscopy (number/high power field) NONE NRG Automated urine sediment leukocyte count by microscopy (number/high power field) RARE NRG Bacteria detection in urine sediment by light microsco py NEGATIVE NRG Squamous epithelial cells detection in u rine sediment by light microscopy 0-2 NRG Crystals detection in urine sediment by light microsco py PRESENT NRG Casts detection in urine sediment by light microscopy NONE NRG Mucus detection in urine sediment by light microscopy SMALL NRG Complete urinalysis with reflex to culture NO NRG Calcium oxalate crystals detection in ur ine sediment by light microscopy FEW NRG Complete blood count (CBC) with automate d white blood cell (WBC) differential - 09/16/19 10:30 Blood leukocytes automated count (number/volume) 10.0 10*3/uL 4.3-11.0 Blood erythrocytes automated count (number/volume) 4.19 10*6/uL 4.35-5.85 Venous blood hemoglobin measurement (mass/volume) 12.9 g/dL 13.3-17.7 Blood hematocrit (volume fraction) 37 % 40-54 Automated erythrocyte mean corpuscular volume 89 [ foz_us] 80-99 Automated erythrocyte mean corpuscular h emoglobin (mass per erythrocyte) 31 pg 25-34 Automated erythrocyte mean corpuscular h emoglobin concentration measurement (mass/volume) 35 g/dL 32-36 Automated erythrocyte distribution width ratio 13. 1 % 10.0- 14.5 Automated blood platelet count (count/volume) 261 10*3/uL 130-400 Automated blood platelet mean volume measurement 9.7 [foz_us] 7.4-10.4 Automated blood neutrophils/100 leukocytes 79 % 42-75 Automated blood lymphocytes/100 leukocytes 11 % 12-44 Blood monocytes/100 leukocytes 9 % 0-12 Automated blood eosinophils/100 leukocytes 1 % 0-10 Automated blood basophils/100 leukocytes 0 % 0-10 Blood neutrophils automated count (number/volume) 7.9 10*3 1.8-7.8 Blood lymphocytes automated count (number/volume) 1.1 10*3 1.0-4.0 Blood monocytes automated count (number/volume) 0. 9 10*3 0.0-1.0 Automated eosinophil count 0.1 10*3/uL 0 .0-0.3 Automated blood basophil count (count/volume) 0.0 10*3/uL 0.0-0.1 Encounters ACCT No. Visit Date/Time Discharge Status Pt. Type Provider Facility Loc./Unit Complaint [id number] 05/06/2019 14:15:00 05/06/2019 23:59: 59 CLS [facility]patient [facility] [id number] 05/06/2019 14:15:00 Document Registration [id number] 10/29/2018 17:45:00 Document Registration [id number] 10/09/2018 13:15:00 Document Registration [id number] 07/05/2019 12:15:00 23:59:59 CLS Outpatient JUAN MANUEL MANZO MD Via [facility] RAD FS R05 R06.02 [id number] 07/03/2019 11:39:00 12:40:00 DIS Emergency MAGNOVENSTMINOO CAMARA DO Via [facility] ER FS LOW ABD PAIN,CO UGH [id number] 07/01/2019 09:38:00 11:57:00 DIS Emergency ABDOULAYE COYNE MD Via [facility] ER FS FALL [id number] 04/25/2019 08:31:00 09:20:00 DIS Emergency SHERRI POWELL DO Via [facility] ER FS FALL - FACIAL LACERATIO N [id number] 09/16/2019 10:46:00 Document Registration
--- NOTE | 2019-09-16 10:59 | Diagnostic Imaging Report ---
INDICATION: Dehydration and confusion. Time of exam 10:41 AM Images over the chest demonstrate interstitial fibrotic changes throughout both lungs. No definite free air is identified. The bowel gas pattern is nonobstructed. There is moderate stool in the right colon. There are radiation seed implants within the prostate gland. No pathologic calcifications are detected. IMPRESSION: No acute features detected. Dictated by: Dictated on workstation # [id number]
[2019-09-16 11:08] LABS: ALANINE AMINOTRANSFERASE 5 U/L (0-55); ALBUMIN 3.6 GM/DL (3.2-4.5); ALKALINE PHOSPHATASE 52 U/L (40-136); AMYLASE 68 U/L (25-125); BILIRUBIN,TOTAL 0.8 MG/DL (0.1-1.0); BUN/CREATININE RATIO 21; CALCIUM 9.5 MG/DL (8.5-10.1); CARBON DIOXIDE 29 MMOL/L (21-32); CHLORIDE 89 MMOL/L (98-107); CREATININE SERUM 0.95 MG/DL (0.60-1.30); GFR ESTIMATED > 60; GLUCOSE 117 MG/DL (70-105); LIPASE 18 U/L (8-78); TOTAL PROTEIN 6.7 GM/DL (6.4-8.2)
[2019-09-16 11:09] LABS: SODIUM 128 MMOL/L (135-145)
--- NOTE | 2019-09-16 11:15 | NUR ---
Pt rec'd 1 L bolus of NS from the EMS bag of fluids.
[2019-09-16 11:30] LABS: CLARITY,URINE CLEAR; COLOR,URINE YELLOW
[2019-09-16 11:31] LABS: BILIRUBIN,URINE NEGATIVE (NEGATIVE); GLUCOSE, URINE (UA) NEGATIVE (NEGATIVE); KETONES,URINE 1+ (NEGATIVE); LEUKOCYTE ESTERASE ,URINE NEGATIVE (NEGATIVE); NITRITE,URINE NEGATIVE (NEGATIVE); PROTEIN,URINE NEGATIVE (NEGATIVE)
[2019-09-16 11:36] LABS: BACTERIA,URINE NEGATIVE /HPF; RBC,URINE RARE /HPF; WBC,URINE 0-2 /HPF
--- NOTE | 2019-09-16 11:45 | NUR ---
Attempting orthostatic B/P's but reported to Dr the increase of pt's Parkinson tremors becoming more prominent with the movements and presenting double counting of heart rate (pulse) on monitor r/t movements over cardiac wires and inaccurate NIBP with arms tremoring with nursing staff attempting to hold them still. It is noted the true pulse rate went from 84-lying, 89-sitting, and 97-standing. NIBP was 163/78 lying, couple attempts at sitting with reading 176/119 and increased tremors but standing B/P was artifact on several tries related to uncontrolled tremorous movements becoming very pronounced with inaccuracy reading 229/209 to lying down repeated 152/68.
--- NOTE | 2019-09-16 12:15 | NUR ---
Called report to Mirlande UREÑA at [facility]. They will await RN's to bring outside when they arrive and call.
--- NOTE | 2019-09-16 12:15 | NUR ---
Artifact from pt movements of increased tremors against groundwater monitoring technician wires often reflect double reading of pulse rate and also mimic V-tach. Pt remains alert and no verbalized c/o's, asymptomatic. Uneventful ED visit.
[2019-09-16 12:30] VITALS: BP 147/67
--- NOTE | 2019-09-16 12:30 | NUR ---
Pt discharged to [facility] staff awaiting outside of ER. Transferred pt from W/C to W/. Discharge instructions and lab/xray report sent. Pt voided twice in ED into a urinal calling out for help each time. Pt communication with nursing staff has been appropriate.
== END 2019-09-16 12:30 ==
LOC: EDUNIT# 10:10 → ER FS 10:12
DX: R19.7 Diarrhea, unspecified (principal); E86.0 Dehydration; G20 Parkinson's disease; E87.1 Hypo-osmolality and hyponatremia; I10 Essential (primary) hypertension; Z88.0 Allergy status to penicillin; Z85.46 Personal history of malignant neoplasm of prostate
CPT/HCPCS: 36415; 74022; 80053; 81000; 82150; 83690; 85025

== ENCOUNTER 2019-09-24 04:50 | Emergency (ER) | payer MEDICARE ==
--- OUTSIDE RECORDS SUMMARY | 2019-09-24 04:58 | XMS REPORT | Continuity of Care Document ---
Author Organization Unknown Address Unknown Phone Unavailable Allergies Active Description Code Type Severity Reaction Onset Reported/Identified Relationship to Patient Clinical Status Yes Penicillins [id number] Drug Aller gy Unknown N/A 04/25/2019 Medications [...] MD Ot Y92.[address] IN [address]ATE PLACE 07/01/2019 ABDOULAYE COYNE MD Ot Z23 [...] MD Ot Y92.[address] PLACE 07/05/2019 ABDOULAYE COYNE MD Ot Z23 ENCOUNTER FOR IMMUNIZATION 07/05/2019 ABDOULAYE COYNE MD Ot Z85.4 6 PERSONAL HISTORY OF MALIGNANT NEOPLASM O 07/05/2019 STANFORD MAYORGA, ABDOULAYE Fuentes Ot Z88.0 ALLERGY STATUS TO PENICILLIN 07/06/2019 [...] MD Ot Y92.[address]ATE PLACE 07/08/2019 ABDOULAYE COYNE MD Ot Z23 ENCOUNTER FOR IMMUNIZATION 07/08/2019 ABDOULAYE COYNE MD Ot Z85.4 6 PERSONAL HISTORY OF MALIGNANT NEOPLASM O 07/08/2019 ABDOULAYE COYNE MD, Ot Z88.0 ALLERGY STATUS TO PENICILLIN 07/29/2019 JUAN MANUEL MANZO MD R Ot 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 07/29/2019 JUAN MANUEL MANZO MD Ot R06.0 2 SHORTNESS OF BREATH 08/09/2019 JUAN MANUEL MANZO MD Ot 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 08/09/2019 JUAN MANUEL MANZO MD Ot R06.0 2 SHORTNESS OF BREATH 09/16/2019 JUAN MANUEL MANZO MD Ot 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 09/16/2019 JUAN MANUEL MANZO MD Ot R06.0 2 SHORTNESS OF BREATH 09/20/2019 RAYMUNDO JUSTICE MD, Ot E86.0 DEHYDRATION 09/20/2019 RAYMUNDO JUSTICE MD, Ot E87.1 HYPO-OSMOLALITY AND HYPONATREMIA 09/20/2019 RAYMUNDO JUSTICE MD, Ot G2 0 PARKINSON'S DISEASE 09/20/2019 RAYMUNDO JUSTICE MD, Ot I1 0 ESSENTIAL (PRIMARY) HYPERTENSION 09/20/2019 RAYMUNDO JUSTICE MD, Ot R19.7 DIARRHEA, UNSPECIFIED 09/20/2019 RAYMUNDO JUSTICE MD, Ot Z85.46 PERSONAL HISTORY OF MALIGNANT NEOPLASM O 09/20/2019 RAYMUNDO JUSTICE MD, Ot Z88.0 ALLERGY STATUS TO PENICILLIN Procedures There is no data. Results Test Result Range [facility] - 10/09/18 14:05 GLUCOSE 102 mg/dL 65-139 UREA NITROGEN (BUN) 25 mg/dL 7-25 CREATININE 1.11 mg/dL 0.70-1.11 eGFR NON-AFR. [place] 61 mL/min/1.73m2 > OR = 60 eGFR [...] 12 U/L 10-35 ALT 5 U/L 9-46 [facility] - 10/29/18 08:50 GLUCOSE 90 mg/dL 65-99 UREA NITROGEN (BUN) 24 mg/dL 7-25 CREATININE 1.04 mg/dL 0.70-1.11 eGFR NON-AFR. [place] 66 mL/min/1.73m2 > OR = 60 eGFR [...] 7-25 CREATININE 1.21 mg/dL 0.70-1.11 eGFR NON-AFR. [place] 54 mL/min/1.73m2 > OR = 60 eGFR [...] AST 11 U/L 10-35 ALT 6 U/L 9-46 CBC - 05/06/19 14:49 WHITE BLOOD CELL [...] blood basophil count (count/volume) 0.0 10*3/uL 0.0-0.1 Comprehensive metabolic panel - 09/16/19 10:30 Serum or plasma sodium measurement (moles/volume) 128 mmol/L 135-145 Serum or plasma potassium measurement (moles/volume) 4.0 mmol/L 3.6-5.0 Serum or plasma chloride measurement (moles/volume) 89 mmol/L 98-107 Carbon dioxide 29 mmol/L 21-32 Serum or plasma anion gap determination (moles/volume) 10 mmol/L 5-14 Serum or plasma urea nitrogen measurement (mass/volume ) 20 mg/dL 7-18 Serum or plasma creatinine measurement (mass/volume) 0.95 mg/dL 0.60-1.30 Serum or plasma urea nitrogen/creatinine mass ratio 21 NRG Serum or plasma creatinine measurement w ith calculation of estimated glomerular filtration rate > NRG Serum or plasma glucose measurement (mass/volume) 117 mg/dL 70-105 Serum or plasma calcium measurement (mass/volume) 9.5 mg/dL 8.5-10.1 Serum or plasma total bilirubin measurement (mass/volu me) 0.8 mg/dL 0.1-1.0 Serum or plasma alkaline phosphatase rio surement (enzymatic activity/volume) 52 U/L 40-136 Serum or plasma aspartate aminotransfera se measurement (enzymatic activity/volume) 14 U/L 5-34 Serum or plasma alanine aminotransferase measurement (enzymatic activity/volume) 5 U/L 0-55 Serum or plasma protein measurement (mass/volume) 6.7 g/dL 6.4-8.2 Serum or plasma albumin measurement (mass/volume) 3.6 g/dL 3.2-4.5 CALCIUM CORRECTED 9.8 mg/dL 8.5-10.1 Serum or plasma amylase measurement (enz ymatic activity/volume) - 09/16/19 10:30 Serum or plasma amylase measurement (enzymatic activit y/volume) 68 U/L 25-125 Lipase - 09/16/19 10:30 Lipase 18 U/L 8-78 Complete urinalysis with reflex to cultu re - 09/16/19 11:05 Urine color determination YELLOW NRG Urine clarity determination CLEAR NR G Urine pH measurement by test strip 6.0 5-9 Specific gravity of urine by test strip 1.020 1.016-1.022 Urine protein assay by test strip, semi-quantitative NEGATIVE NEGATIVE Urine glucose detection by automated test strip NE GATIVE NEGATIVE Erythrocytes detection in urine sediment by light micr oscopy NEGATIVE NEGATIVE Urine ketones detection by automated test strip 1+ NEGATIVE Urine nitrite detection by test strip NEGATIVE NEGATIVE Urine total bilirubin detection by test strip NEGA TIVE NEGATIVE Urine urobilinogen measurement by automated test strip (mass/volume) 0.2 mg/dL < = 1.0 Urine leukocyte esterase detection by dipstick NEG ATIVE NEGATIVE Automated urine sediment erythrocyte cou nt by microscopy (number/high power field) RARE NRG Automated urine sediment leukocyte count by microscopy (number/high power field) [HPF] NRG Bacteria detection in urine sediment by light microsco py NEGATIVE NRG Squamous epithelial cells detection in u rine sediment by light microscopy 2-5 NRG Crystals detection in urine sediment by light microsco py NONE NRG Casts detection in urine sediment by light microscopy NONE NRG Mucus detection in urine sediment by light microscopy NEGATIVE NRG Complete urinalysis with reflex to culture NO NRG Encounters ACCT No. Visit Date/Time Discharge Status Pt. Type Provider Facility Loc./Unit Complaint [id number] 05/06/2019 14:15:00 05/06/2019 23:59: 59 [facility] [id number] 05/06/2019 14:15:00 Document Registration [id number] 10/29/2018 17:45:00 Document Registration [id number] 10/09/2018 13:15:00 Document Registration [id number] 09/16/2019 10:12:00 12:30:00 DIS Outpatient VINH MAYORGA, RAYMUNDO Ross [facility] ER FS AMS [id number] 07/05/2019 12:15:00 23:59:59 CLS Outpatient ANAIS MAYORGA, JUAN MANUEL Hayes [facility] RAD FS R05 R06.02 [id number] 07/03/2019 11:39:00 12:40:00 DIS Emergency ROVENSTMINOO CAMARA DO Via [facility] ER FS LOW ABD PAIN,CO UGH [id number] 07/01/2019 09:38:00 11:57:00 DIS Emergency ABDOULAYE COYNE MD [facility] ER FS FALL [id number] 04/25/2019 08:31:00 019 09:20:00 DIS Emergency POWELL SHERRI CLIFTON [facility] ER FS FALL - FACIAL LACERATIO N [id number] 09/24/2019 04:53:[address] Emergency ATILIO MOORE DO [facility] ER FS FALL,HEAD INJURY
[2019-09-24] MEDS ORDERED: LIDOCAINE 1% INJ 20 ML 20 ML VIAL ONE (05:11)
--- NOTE | 2019-09-24 05:18 | ED Trauma-Multisystem ---
General Chief Complaint: Trauma-Non Activation Stated Complaint: FALL,HEAD INJURY Nursing Triage Note: Pt rolled out of bed and presents with a head laceration and skin tear on left elbow Source of Information: Patient, Caregiver Exam Limitations: Language Barrier (Pt has dementia) History of Present Illness Date Seen by Provider: September 24, 2019 Time Seen by Provider: 04:59 Initial Comments 83 yr old male presents with a head lac and a left arm skin tear from a fall out of bed. Pt is able to provide some details of the fall and is conversant. He believes he had a laceration about a year ago and staff will check on tetanus toxoid status with the F. Pt has two skin tears on the left elbow area but no bone complaints and can move left shoulder and elbow and wrist without issues. Pt believes he hit the dresser with the back of the head sustaining the head laceration. No evidence of skull fracture. Wound given 1% xylocaine and scrubbed with betadine and had NO FB. No other injuries and no complaints from the right UE or LE. CN II to XII are grossly intact. Occurred: Just Prior to Arrival Severity: Moderate Pain/Injury Location: Head (near apex of crown posterior aspect), Upper Extremity (left elbow) Method of Injury: Fall Modifying Factors: Movement Loss of Consciousness: No Loss of Consciousness (per patient and no report of LOC from ECF) Associated Symptoms (Fall): Headache (area of laceration on scalp), Other (Pt reports dizziness on trying to stand and lost balance) Allergies and Home Medications Allergies Coded Allergies: Penicillins (Verified Allergy, Unknown, 04/25/19) Home Medications Calcium Carbonate/Vitamin D3 1 Each Capsule, 2 EACH PO DAILY, (Reported) Docusate Sodium 100 Mg Capsule, 200 MG PO HS, (Reported) Doxazosin Mesylate 2 Mg Tablet, 2 MG PO DAILY, (Reported) Hyoscyamine 0.15 Mg Tablet, 0.375 MG PO 1-2 BID, (Reported) Multivitamins 1 Tab Tablet, 1 TAB PO DAILY, (Reported) Psyllium 1 Pkt Packet, 1 PKT PO DAILY, (Reported) Patient Home Medication List Home Medication List Reviewed: Yes Review of Systems Review of Systems Constitutional: see HPI, dizziness ( upon standing prior to fall per patient) Eyes: No Symptoms Reported (appears aphakic bilaterally) Ears: No Symptoms Reported Nose: No Symptoms Reported Mouth: No Symptoms Reported Throat: No Symptoms to Report Respiratory: no symptoms reported Cardiovascular: No Symptoms Reported Gastrointestinal: no symptoms reported Genitourinary: no symptoms reported ( had to urinate upon arrival to the ED) Musculoskeletal: muscle pain (in the left elbow but has normal ROM after the fall) Skin: see HPI, other (5 cm laceration on the posterior crown cleaned and sutured 4-0 five simple interupted and two skin tears steristripped left elbow) Psychiatric/Neurological: Cognitive Dysfunction (reported baseline) Past Vjudgcf-Cbelzi-Gexlae Hx Past Med/Social Hx: Reviewed Nursing Past Med/Soc Hx Patient Social History Alcohol Use: Denies Use Recreational Drug Use: No Smoking Status: Never a Smoker 2nd Hand Smoke Exposure: No Recent Foreign Travel: No Contact w/Someone Who Travel: No Recent Infectious Disease Expo: No Recent Hopitalizations: No Physical Abuse: No Sexual Abuse: No Immunizations Up To Date Tetanus Booster (TDap): Unknown Seasonal Allergies Seasonal Allergies: No Past Medical History Surgeries: Yes (Hernia Repair) Tonsillectomy Respiratory: No Cardiac: Yes Hypertension 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) Parkinson's Disease Reproductive Disorders: No Sexually Transmitted Disease: No Genitourinary: Yes Benign Prostatic Hyperpl Gastrointestinal: No Musculoskeletal: Yes (ARTHRITIS) Endocrine: No HEENT: No Cancer: Yes Prostate Did You Recieve Any Treatments: Yes What Type of Treatment Did You: Radiation Psychosocial: No Integumentary: No Blood Disorders: No Family Medical History Reviewed Nursing Family Hx Physical Exam Vital Signs Vital Signs - First Documented 09/24/19 04:55 Temp 36.4 Pulse 78 Resp 16 B/P (MAP) 150/93 (112) Pulse Ox 96 O2 Delivery Room Air Height, Weight, BMI Height: '" Weight: lbs. oz. kg; 24.00 BMI Method:Stated General Appearance: Mild Distress Head: Lacerations (posterior crown and sutured) Eyes: Bilateral Eye Normal Inspection, Bilateral Eye PERRL, Bilateral Eye EOMI, Bilateral Eye Other (aphakic) Ears, Nose, Throat: No Evidence of ENT Injury ( but decreased hearing), Decreased Hearing Neck: Full Range of Motion ( able to flex ext and rotate neck without pain), Normal Inspection, Non Tender Cardiovascular: Regular Rate, Rhythm, No Edema, No Gallop, No JVD, No Murmur Respiratory: Chest Non Tender, Lungs Clear, Normal Breath Sounds, No Accessory Muscle Use, No Respiratory Distress Gastrointestinal: Normal Bowel Sounds, No Organomegaly, No Pulsatile Mass, Non Tender, Soft (hx of prostate ca and treated with radiation) Back: Normal Inspection, No CVA Tenderness, No Vertebral Tenderness Extremity: Normal Capillary Refill, Normal Inspection, Normal Range of Motion, Other (R elbow tenderness from skin tears) Neurologic/Psychiatric: Oriented x3 ( and conversant but some cognitive delay), No Motor/Sensory Deficits, Normal 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, 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 Norm as Tested Skin: Normal Color, Warm/Dry, Ecchymosis (left elbow and skin tears), Other (Lac 5cm posterior crown and sutured) Lymphatic: No Adenopathy Di Coma Score Best Eye Response (Di): (4) Open Spontaneously Best Verbal Response ([place]): (5) Oriented Best Motor Response ([place]): (6) Obeys Commands Di Total: 15 Procedures/Interventions Wound Location: Scalp (5 cm lac posterior crown no FB and 1% xylocaine infiltrated and scrubbed NO FB) Wound's Depth, Shape: irregular ( and skin tears on left elbow) Wound Explored: no foreign body removed Betadine Prep?: Yes Anesthesia: 1% Lidocaine Volume Anesthetic (ccs): 4 Wound Debrided: minimal Suture: Ethlion Suture Size: 4-0, 5-0 Number of Sutures: 5 Layer Closure?: 1 Number Deep Layer Sutures: 0 Sterile Dressing Applied?: Yes Progress skin tears approximated and steristripped on left elbow Progress/Results/Core Measures Results/Orders My Orders Orders - ATILIO MOORE DO Lidocaine 1% Inj 20 Ml (Xylocaine 1% Inj (09/24/19 05:11) Lidocaine 1% Inj 20 Ml (Xylocaine 1% Inj (09/24/19 05:30) Medications Given in ED Current Medications Medications Dose Ordered Sig/Reyes Route Start Time Stop Time Status Last Admin Dose Admin Lidocaine HCl 20 ml ONCE ONCE INJ 09/24/19 05:30 09/24/19 05:31 DC 09/24/19 05:44 20 ML Vital Signs/I&O 09/24/19 04:55 Temp 36.4 Pulse 78 Resp 16 B/P (MAP) 150/93 (112) Pulse Ox 96 O2 Delivery Room Air Blood Pressure Mean: 112 Departure Impression Primary Impression: Laceration of scalp without complication Additional Impressions: Skin tear of elbow without complication Concussion Disposition: 03 XFER SNF (back to [facility] where he resides) Condition: Improved Departure-Patient Inst. Decision time for Depature: 05:57 Referrals: SIL HOBBS MD (PCP/Family) Primary Care Physician Patient Instructions: Concussion in Adults, Laceration Repair With Stitches (DC), Skin Abrasions (DC) Add. Discharge Instructions: 83 yr old male presents with laceration to scalp and skin tears to the left elbow after a fall trying to get out of bed. Pt has some confusion about the fall but was interactive and conversant regarding the injuries. Sutures X 5 to the scalp laceration and steristrips for the skin tears. Pt is medically stable to return to the ED. Pt to be monitored and assisted when needing to leave the bed. Continue care with the [facility] provider. All discharge instructions reviewed with patient and/or family. Voiced understanding. Copy Copies To 1: SIL HOBBS MD, ANTHONY H DO September 24, 2019 05:18
[2019-09-24] MEDS ORDERED: LIDOCAINE 1% INJ 20 ML 20 ML VIAL INJ ONE (05:30)
[2019-09-24 05:45] VITALS: BP 150/93
== END 2019-09-24 07:00 ==
LOC: EDUNIT# 04:50 → ER FS 04:53
DX: S06.0X0A Concussion without loss of consciousness, initial encounter (principal); S01.01XA Laceration without foreign body of scalp, initial encounter; S51.012A Laceration without foreign body of left elbow, initial encounter; I10 Essential (primary) hypertension; N40.0 Benign prostatic hyperplasia without lower urinary tract symptoms; R40.2142 Coma scale, eyes open, spontaneous, at arrival to emergency department; R40.2252 Coma scale, best verbal response, oriented, at arrival to emergency department; R40.2362 Coma scale, best motor response, obeys commands, at arrival to emergency department; Z88.0 Allergy status to penicillin; Z85.46 Personal history of malignant neoplasm of prostate; W06.XXXA Fall from bed, initial encounter
CPT/HCPCS: 12001

== ENCOUNTER 2019-10-15 10:18 | Emergency (ER) | payer MEDICARE ==
[~2019-10-15] VITALS: Ht 175.2 cm; Wt 72.9 kg
--- NOTE | 2019-10-15 10:30 | ED General ---
General Stated Complaint: SEIZURE LIKE SYMPTOMS Source of Information: Patient Exam Limitations: No Limitations History of Present Illness Date Seen by Provider: Oct 15, 2019 Time Seen by Provider: 10:20 Initial Comments 83 y/o presents from [place] via EMS after episode of presumed "seizure". Patient was standing and sat down w a shaking episode for a few seconds. Was less aware, maybe passed out. No fall or injury. On arrival pt awake. alert and oriented. Asked him what happened and he admits he has been feeling this way every morning....weak and tired. Today felt like he "blacked out after standing". Doesn't recall after that. On arrival feeling well without significant complaint. Allergies and Home Medications Allergies Coded Allergies: Penicillins (Verified Allergy, Unknown, 04/25/19) Home Medications Calcium Carbonate/Vitamin D3 1 Each Capsule, 2 EACH PO DAILY, (Reported) Docusate Sodium 100 Mg Capsule, 200 MG PO HS, (Reported) Doxazosin Mesylate 2 Mg Tablet, 2 MG PO DAILY, (Reported) Hyoscyamine 0.15 Mg Tablet, 0.375 MG PO 1-2 BID, (Reported) Multivitamins 1 Tab Tablet, 1 TAB PO DAILY, (Reported) Psyllium 1 Pkt Packet, 1 PKT PO DAILY, (Reported) Patient Home Medication List Home Medication List Reviewed: Yes Review of Systems Review of Systems Constitutional: No chills, No diaphoresis, No dizziness, No fever, No malaise; weakness EENTM: no symptoms reported Respiratory: No cough, No short of breath Cardiovascular: No chest pain, No edema, No palpitations; other (Hx of A. fib) Gastrointestinal: No abdominal pain, No loss of appetite, No nausea, No vomiting Musculoskeletal: No back pain, No joint pain Skin: No change in color, No lesions, No rash Psychiatric/Neurological: Denies Anxiety, Denies Depressed, Denies Headache, Denies Numbness, Denies Paresthesia Past Kihmivx-Fazvkp-Whfirg Hx Past Med/Social Hx: Reviewed Nursing Past Med/Soc Hx Patient Social History 2nd Hand Smoke Exposure: No Recent Hopitalizations: No Immunizations Up To Date Tetanus Booster (TDap): Unknown Seasonal Allergies Seasonal Allergies: No Past Medical History Surgeries: Yes (Hernia Repair) Tonsillectomy Respiratory: No Cardiac: Yes Hypertension 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 oz. kg; 24.00 BMI Method:Stated General Appearance: No Apparent Distress, WD/WN HEENT: PERRL/EOMI, Normal ENT Inspection Neck: Normal Inspection, Non Tender, Supple Respiratory: Lungs Clear, No Accessory Muscle Use, No Respiratory Distress Cardiovascular: Regular Rate, Rhythm, No Edema, Normal Peripheral Pulses Gastrointestinal: Non Tender, Soft; No Distended, No Guarding Back: Normal Inspection, No CVA Tenderness, No Vertebral Tenderness Extremity: Normal Capillary Refill, Normal Inspection, Non Tender, No Calf Tenderness Neurologic/Psychiatric: Alert, Oriented x3, No Motor/Sensory Deficits, Normal 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/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, 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 Norm as Tested Focused Exam Lactate Level 10/15/19 10:40: Lactic Acid Level 1.44 Lactic Acid Level Procedures/Interventions Suture Size: 4-0, 5-0 Progress/Results/Core Measures Suspected Sepsis SIRS Temperature: Pulse: Respiratory Rate: Laboratory Tests 10/15/19 10:20: White Blood Count 8.7 Blood Pressure / Mean: 10/15/19 10:40: Lactic Acid Level 1.44 Laboratory Tests 10/15/19 10:20: Creatinine 1.10, Platelet Count 269, Total Bilirubin 0.5 Results/Orders Lab Results Laboratory Tests Test 10/15/19 10:20 10/15/19 10:40 10/15/19 11:35 Range/Units White Blood Count 8.7 4.3-11.0 10^3/uL Red Blood Count 3.75 L 4.35-5.85 10^6/uL Hemoglobin 11.5 L 13.3-17.7 G/DL Hematocrit 35 L 40-54 % Mean Corpuscular Volume 93 80-99 FL Mean Corpuscular Hemoglobin 31 25-34 PG Mean Corpuscular Hemoglobin Concent 33 32-36 G/DL Red Cell Distribution Width 13.6 10.0-14.5 % Platelet Count 269 130-400 10^3/uL Mean Platelet Volume 9.6 7.4-10.4 FL Neutrophils (%) (Auto) 69 42-75 % Lymphocytes (%) (Auto) 17 12-44 % Monocytes (%) (Auto) 10 0-12 % Eosinophils (%) (Auto) 4 0-10 % Basophils (%) (Auto) 1 0-10 % Neutrophils # (Auto) 6.0 1.8-7.8 X 10^3 Lymphocytes # (Auto) 1.5 1.0-4.0 X 10^3 Monocytes # (Auto) 0.8 0.0-1.0 X 10^3 Eosinophils # (Auto) 0.3 0.0-0.3 10^3/uL Basophils # (Auto) 0.1 0.0-0.1 10^3/uL Sodium Level 135 135-145 MMOL/L Potassium Level 4.5 3.6-5.0 MMOL/L Chloride Level 97 L 98-107 MMOL/L Carbon Dioxide Level 27 21-32 MMOL/L Anion Gap 11 5-14 MMOL/L Blood Urea Nitrogen 24 H 7-18 MG/DL Creatinine 1.10 0.60-1.30 MG/DL Estimat Glomerular Filtration Rate > 60 BUN/Creatinine Ratio 22 Glucose Level 99 70-105 MG/DL Calcium Level 9.1 8.5-10.1 MG/DL Corrected Calcium 9.7 8.5-10.1 MG/DL Total Bilirubin 0.5 0.1-1.0 MG/DL Aspartate Amino Transf (AST/SGOT) 10 5-34 U/L Alanine Aminotransferase (ALT/SGPT) 5 0-55 U/L Alkaline Phosphatase 64 40-136 U/L Troponin I < 0.30 <0.30 NG/ML Total Protein 6.1 L 6.4-8.2 GM/DL Albumin 3.3 3.2-4.5 GM/DL Lactic Acid Level 1.44 0.50-2.00 MMOL/L Urine Color YELLOW Urine Clarity CLEAR Urine pH 7.0 5-9 Urine Specific [place] 1.015 L 1.016-1.022 Urine Protein NEGATIVE NEGATIVE Urine Glucose (UA) NEGATIVE NEGATIVE Urine Ketones NEGATIVE NEGATIVE Urine Nitrite NEGATIVE NEGATIVE Urine Bilirubin NEGATIVE NEGATIVE Urine Urobilinogen 0.2 < = 1.0 MG/DL Urine Leukocyte Esterase NEGATIVE NEGATIVE Urine RBC (Auto) NEGATIVE NEGATIVE Urine RBC NONE /HPF Urine WBC NONE /HPF Urine Squamous Epithelial Cells 0-2 /HPF Urine Crystals NONE /LPF Urine Bacteria NONE /HPF Urine Casts PRESENT /LPF Urine Hyaline Casts 0-2 H /LPF Urine Mucus NEGATIVE /LPF Urine Culture Indicated NO My Orders Orders - ROVENSTINE,MINOO L DO Ed Iv/Invasive Line Start (10/15/19 10:23) Cbc With Automated Diff (10/15/19 10:23) Comprehensive Metabolic Panel (10/15/19 10:23) Urinalysis (10/15/19 10:23) Troponin I Fs (10/15/19 10:23) Ekg Tracing (10/15/19 10:23) Chest 1 View Ap/Pa Only (10/15/19 10:23) Lactic Acid Analyzer (10/15/19 10:23) Ns Iv 1000 Ml (Sodium Chloride 0.9%) (10/15/19 11:31) Ns Iv 1000 Ml (Sodium Chloride 0.9%) (10/15/19 11:45) Vital Signs/I&O 10/15/19 10/15/19 10/15/19 10:18 10:49 13:01 Temp 36.2 36.2 36.2 Pulse 63 55 75 Resp 16 17 17 B/P (MAP) 116/56 (76) 129/57 (81) 128/54 (81) Pulse Ox 97 98 98 O2 Delivery Room Air Room Air Room Air Capillary Refill : ECG Initial ECG Impression Time: 10:45 Initial ECG Rate: 55 Initial ECG Rhythm: Normal Sinus Initial ECG Intervals: Normal Diagnostic Imaging Comments FINDINGS: There is extensive interstitial reticular opacities in the lungs bilaterally, particularly in the periphery and in the left lung base. Overall aeration appears improved compared to the prior exam. No significant pleural effusion or pneumothorax is seen. The cardiac silhouette is normal in size. There is aortic atherosclerosis. IMPRESSION: 1. Extensive chronic opacities in the lungs, likely due to fibrotic changes. Underlying infection is not excluded, however overall aeration appears improved compared to 07/05/2019. Dictated on workstation # [id number] Dict: 10/15/19 1039 Trans: 10/15/19 1042 [id number] Interpreted by: TRINA WALL MD Electronically signed by: Departure Impression Primary Impression: Episode of syncope Qualified Codes: R55 - Syncope and collapse Additional Impression: Orthostatic hypotension due to Parkinson's disease Disposition: 01 HOME, SELF-CARE Condition: Improved Departure-Patient Inst. Decision time for Depature: 12:14 Referrals: SELFSIL MD (PCP/Family) Primary Care Physician Patient Instructions: Parkinson Disease (DC), Syncope (Fainting) (DC) Add. Discharge Instructions: You are advised to follow up with your PCP in the next week to discuss how you are feeling in the morning and your episode of passing out this morning that is likely related to low blood pressure when standing. MINOO IGLESIAS DO Oct 15, 2019 10:30
[2019-10-15 10:34] LABS: HEMATOCRIT 35 % (40-54); HEMOGLOBIN 11.5 G/DL (13.3-17.7); LYMPHOCYTES % (AUTO) 17 % (12-44); MEAN CORPUSCULAR HEMOGLOBIN 31 PG (25-34); MEAN CORPUSCULAR HGB CONC 33 G/DL (32-36); MEAN CORPUSCULAR VOLUME 93 FL (80-99); MEAN PLATELET VOLUME 9.6 FL (7.4-10.4); MONOCYTES % (AUTO) 10 % (0-12); NEUTROPHILS % (AUTO) 69 % (42-75); PLATELET COUNT 269 10^3/uL (130-400); RED CELL DISTRIBUTION WIDTH 13.6 % (10.0-14.5); WHITE BLOOD COUNT 8.7 10^3/uL (4.3-11.0)
[2019-10-15 10:35] LABS: BASOPHILS # (AUTO) 0.1 10^3/uL (0.0-0.1); BASOPHILS % (AUTO) 1 % (0-10); EOSINOPHILS # (AUTO) 0.3 10^3/uL (0.0-0.3); EOSINOPHILS % (AUTO) 4 % (0-10); LYMPHOCYTES # (AUTO) 1.5 X 10^3 (1.0-4.0); MONOCYTES # (AUTO) 0.8 X 10^3 (0.0-1.0)
--- NOTE | 2019-10-15 10:42 | Diagnostic Imaging Report ---
HISTORY: Seizure like symptoms. COMPARISON: 07/05/2019 TECHNIQUE: Frontal view of the chest. FINDINGS: There is extensive interstitial reticular opacities in the lungs bilaterally, particularly in the periphery and in the left lung base. Overall aeration appears improved compared to the prior exam. No significant pleural effusion or pneumothorax is seen. The cardiac silhouette is normal in size. There is aortic atherosclerosis. IMPRESSION: 1. Extensive chronic opacities in the lungs, likely due to fibrotic changes. Underlying infection is not excluded, however overall aeration appears improved compared to 07/05/2019. Dictated by: Dictated on workstation # [id number]
[2019-10-15 10:49] VITALS: BP 129/57
[2019-10-15 10:56] LABS: ALANINE AMINOTRANSFERASE 5 U/L (0-55); ALBUMIN 3.3 GM/DL (3.2-4.5); ALKALINE PHOSPHATASE 64 U/L (40-136); BILIRUBIN,TOTAL 0.5 MG/DL (0.1-1.0); BUN/CREATININE RATIO 22; CALCIUM 9.1 MG/DL (8.5-10.1); CARBON DIOXIDE 27 MMOL/L (21-32); CHLORIDE 97 MMOL/L (98-107); GFR ESTIMATED > 60; GLUCOSE 99 MG/DL (70-105); POTASSIUM 4.5 MMOL/L (3.6-5.0); SODIUM 135 MMOL/L (135-145); TOTAL PROTEIN 6.1 GM/DL (6.4-8.2)
--- OUTSIDE RECORDS SUMMARY | 2019-10-15 11:21 | XMS REPORT | Continuity of Care Document ---
Author Organization Unknown Address Unknown Phone Unavailable Allergies Active Description Code Type Severity Reaction Onset Reported/Identified Relationship to Patient Clinical Status Yes Penicillins [id number] Drug Aller gy Unknown N/A 04/25/2019 Medications [...] MD Ot Y92.[address] IN ASS[address] 07/01/2019 ABDOULAYE COYNE MD Ot Z23 [...] MD Ot Y92.[address] 07/05/2019 ABDOULAYE COYNE MD Ot Z23 [...] MD Ot Y92.[address] PLACE 07/08/2019 ABDOULAYE COYNE MD Ot Z23 [...] 2 SHORTNESS OF BREATH 09/20/2019 RAYMUNDO JUSTICE MD Ot E86.0 DEHYDRATION 09/20/2019 RAYMUNDO JUSTICE MD Ot E87.1 HYPO-OSMOLALITY AND HYPONATREMIA 09/20/2019 RAYMUNDO JUSTICE MD Ot G2 0 PARKINSON'S DISEASE 09/20/2019 RAYMUNDO JUSTICE MD Ot I1 0 ESSENTIAL (PRIMARY) HYPERTENSION 09/20/2019 RAYMUNDO JUSTICE MD Ot R19.7 DIARRHEA, UNSPECIFIED 09/20/2019 RAYMUNDO JUSTICE MD, Ot Z85.46 PERSONAL HISTORY OF MALIGNANT NEOPLASM O 09/20/2019 RAYMUNDO JUSTICE MD, Ot Z88.0 ALLERGY [facility] ESSENTIAL (PRIMARY) HYPERTENSION 10/13/[facility] N40.0 BENIGN PROSTATIC HYPERPLASIA WITHOUT LOW 10/13/2019 [facility], ATILIO Lockett Ot R40.2142 COMA SCALE, EYES OPEN, SPONTANEOUS, EMR 10/13/2019 [facility] , ATILIO Lockett Ot R40.2252 COMA SCALE, BEST VERBAL RESPONSE, ORIENT 10/13/2019 [facility] R40.2362 COMA SCALE, BEST MOTOR RESPONSE, OBEYS C 10/13/2019 [facility] Ot S01.01XA LACERATION WITHOUT FOREIGN BODY OF SCALP 10/13/2019 [facility] ATILIO Ot S06.0X0A CONCUSSION WITHOUT LOSS OF CONSCIOUSNESS 10/13/2019 [facility] Ot S09.90XA UNSPECIFIED INJURY OF HEAD, INITIAL ENCO 10/13/2019 [facility] Ot S51.012A LACERATION WITHOUT FOREIGN BODY OF LEFT 10/13/2019 [facility] ATILIO Ot W06.XXXA FALL FROM BED, INITIAL ENCOUNTER 10/13/2019 [facility] Ot Z85.46 PERSONAL HISTORY OF MALIGNANT NEOPLASM O 10/13/2019 [facility] Z88.0 ALLERGY STATUS TO PENICILLIN Procedures There is no data. Results Test Result Range CMP - 10/09/18 14:05 GLUCOSE 102 mg/dL 65-139 UREA NITROGEN (BUN) 25 mg/dL 7-25 CREATININE 1.11 mg/dL 0.70-1.11 eGFR NON-AFR. SWAZI 61 mL/min/1.73m2 > OR = 60 eGFR [...] AST 12 U/L 10-35 ALT 5 U/L - [facility] - 10/29/18 08:50 GLUCOSE 90 mg/dL 65-99 UREA NITROGEN (BUN) 24 mg/dL 7-25 CREATININE 1.04 mg/dL 0.70-1.11 eGFR NON-AFR. SWAZI 66 mL/min/1.73m2 > OR = 60 eGFR [...] AST 13 U/L 10-35 ALT 5 U/L - [facility] - 05/06/19 14:49 GLUCOSE 98 mg/dL 65-99 UREA NITROGEN (BUN) 26 mg/dL 7-25 CREATININE 1.21 mg/dL 0.70-1.11 eGFR NON-AFR. SWAZI 54 mL/min/1.73m2 > OR = 60 eGFR [...] with reflex to culture NO NRG Complete blood count (CBC) with automate d white blood cell (WBC) differential - 10/15/19 10:20 Blood leukocytes automated count (number/volume) 8.7 10*3/uL 4.3-11.0 Blood erythrocytes automated count (number/volume) 3.75 10*6/uL 4.35-5.85 Venous blood hemoglobin measurement (mass/volume) 11.5 g/dL 13.3-17.7 Blood hematocrit (volume fraction) 35 % 40-54 Automated erythrocyte mean corpuscular volume 93 [ foz_us] 80-99 Automated erythrocyte mean corpuscular h emoglobin (mass per erythrocyte) 31 pg 25-34 Automated erythrocyte mean corpuscular h emoglobin concentration measurement (mass/volume) 33 g/dL 32-36 Automated erythrocyte distribution width ratio 13. 6 % 10.0- 14.5 Automated blood platelet count (count/volume) 269 10*3/uL 130-400 Automated blood platelet mean volume measurement 9.6 [foz_us] 7.4-10.4 Automated blood neutrophils/100 leukocytes 69 % 42-75 Automated blood lymphocytes/100 leukocytes 17 % 12-44 Blood monocytes/100 leukocytes 10 % 0-12 Automated blood eosinophils/100 leukocytes 4 % 0-10 Automated blood basophils/100 leukocytes 1 % 0-10 Blood neutrophils automated count (number/volume) 6.0 10*3 1.8-7.8 Blood lymphocytes automated count (number/volume) 1.5 10*3 1.0-4.0 Blood monocytes automated count (number/volume) 0. 8 10*3 0.0-1.0 Automated eosinophil count 0.3 10*3/uL 0 .0-0.3 Automated blood basophil count (count/volume) 0.1 10*3/uL 0.0-0.1 Comprehensive metabolic panel - 10/15/19 10:20 Serum or plasma sodium measurement (moles/volume) 135 mmol/L 135-145 Serum or plasma potassium measurement (moles/volume) 4.5 mmol/L 3.6-5.0 Serum or plasma chloride measurement (moles/volume) 97 mmol/L 98-107 Carbon dioxide 27 mmol/L 21-32 Serum or plasma anion gap determination (moles/volume) 11 mmol/L 5-14 Serum or plasma urea nitrogen measurement (mass/volume ) 24 mg/dL 7-18 Serum or plasma creatinine measurement (mass/volume) 1.10 mg/dL 0.60-1.30 Serum or plasma urea nitrogen/creatinine mass ratio 22 NRG Serum or plasma creatinine measurement w ith calculation of estimated glomerular filtration rate > NRG Serum or plasma glucose measurement (mass/volume) 99 mg/dL 70-105 Serum or plasma calcium measurement (mass/volume) 9.1 mg/dL 8.5-10.1 Serum or plasma total bilirubin measurement (mass/volu me) 0.5 mg/dL 0.1-1.0 Serum or plasma alkaline phosphatase rio surement (enzymatic activity/volume) 64 U/L 40-136 Serum or plasma aspartate aminotransfera se measurement (enzymatic activity/volume) 10 U/L 5-34 Serum or plasma alanine aminotransferase measurement (enzymatic activity/volume) 5 U/L 0-55 Serum or plasma protein measurement (mass/volume) 6.1 g/dL 6.4-8.2 Serum or plasma albumin measurement (mass/volume) 3.3 g/dL 3.2-4.5 CALCIUM CORRECTED 9.7 mg/dL 8.5-10.1 TROPONIN I FS - 10/15/19 10:20 TROPONIN I FS < 0.30 <0.30 Blood lactic acid measurement (moles/vol ume) - 10/15/19 10:40 Blood lactic acid measurement (moles/volume) 1.44 mmol/L 0.50-2.00 Encounters ACCT No. Visit Date/Time Discharge Status Pt. Type Provider Facility Loc./Unit Complaint [id number] 05/06/2019 14:15:00 05/06/2019 23:59: 59 CLS Outpatient [facility] [id number] 05/06/2019 14:15:00 Document Registration [id number] 10/29/2018 17:45:00 Document Registration [id number] 10/09/2018 13:15:00 Document Registration [id number] 09/24/2019 04:53:00 07:00:00 DIS Outpatient ATILIO MOORE DO [facility] ER FS FALL,HEAD INJURY [id number] 09/16/2019 10:12:00 12:30:00 DIS Outpatient RAYMUNDO JUSTICE MD [facility] ER FS AMS [id number] 07/05/2019 12:15:00 23:59:59 CLS Outpatient JUAN MANUEL MANZO MD [facility] RAD FS R05 R06.02 [id number] 07/03/2019 11:39:00 12:40:00 DIS Emergency ROVENSTMINOO CAMARA DO [facility] ER FS LOW ABD PAIN,CO UGH [id number] 07/01/2019 09:38:00 020 11:57:00 DIS Emergency ABDOULAYE COYNE MD [facility] ER FS FALL [id number] 04/25/2019 08:31:00 019 09:20:00 DIS Emergency SHERRI POWELL DO [facility] ER FS FALL - FACIAL ALBER N [id number] 10/15/2019 10:35:00 Document Registration
[2019-10-15] MEDS ORDERED: NS IV 1000 ML 1,000 ML ONE (11:31)
[2019-10-15] MEDS ORDERED: NS IV 1000 ML 1,000 ML IV SCH (11:45)
[2019-10-15 12:06] LABS: BILIRUBIN,URINE NEGATIVE (NEGATIVE); CLARITY,URINE CLEAR; COLOR,URINE YELLOW; GLUCOSE, URINE (UA) NEGATIVE (NEGATIVE); HYALINE CASTS, URINE 0-2 /LPF; KETONES,URINE NEGATIVE (NEGATIVE); LEUKOCYTE ESTERASE ,URINE NEGATIVE (NEGATIVE); NITRITE,URINE NEGATIVE (NEGATIVE); PROTEIN,URINE NEGATIVE (NEGATIVE); SQUAMOUS EPITHELIAL CELL,UR 0-2 /HPF
[2019-10-15 13:01] VITALS: BP 128/54
== END 2019-10-15 13:01 | disposition home or self-care (01) ==
LOC: EDUNIT# 10:18 → ER FS 10:19
DX: G90.3 Multi-system degeneration of the autonomic nervous system (principal); G20 Parkinson's disease; I10 Essential (primary) hypertension; Z85.46 Personal history of malignant neoplasm of prostate; Z88.0 Allergy status to penicillin
CPT/HCPCS: 36415; 71045; 80053; 81000; 83605; 84484; 85025

== ENCOUNTER 2019-10-26 08:16 | Emergency (ER) | payer MEDICARE ==
[~2019-10-26] VITALS: Ht 177 cm; Wt 70.0 kg
[2019-10-26 08:27] VITALS: BP 132/71
--- NOTE | 2019-10-26 08:34 | ED General ---
General Chief Complaint: General Problems/Pain Stated Complaint: ELEV HR Source of Information: Patient, [facility] Records, Old Records, RN/MD, RN Notes Reviewed History of Present Illness Date Seen by Provider: Oct 26, 2019 Time Seen by Provider: 08:15 Initial Comments This patient is an 83-year-old male with a long history of Parkinson's disease presents to the emergency department for an evaluation. Assisted living states the patient a low pulse ox reading. An increased pulse. Patient has had numerous visits for the same. Apparently the patient's assisted living facility checks for pulse ox every day on his fingers. A lot of always get a low reading in a graded pulse rate patient does have chronic shaking due to Parkinson's disease. In the emergency department blood pressure is normal 132/71 with a heart rate of 69 patient's pulse ox is 100% on room air patient has no complaints. Medical records indicate this is a normal finding for the patient. Patient has no complaints. Did discuss at length with patient about options. Chronic conditions he states understanding patient be discharged back to the nursing facility. Patient's medical screening exam was negative for any acute findings.. Timing/Duration: Other Associated Systoms: No Denies Symptoms, No Chest Pain, No Cough, No Diaphoresis, No Fever/Chills, No Headaches, No Loss of Appetite, No Malaise, No Nausea/Vomiting, No Rash, No Seizure, No Shortness of Air, No Syncope, No Weakness, No Other Allergies and Home Medications Allergies Coded Allergies: Penicillins (Verified Allergy, Unknown, 04/25/19) Home Medications Calcium Carbonate/Vitamin D3 1 Each Capsule, 2 EACH PO DAILY, (Reported) Docusate Sodium 100 Mg Capsule, 200 MG PO HS, (Reported) Doxazosin Mesylate 2 Mg Tablet, 2 MG PO DAILY, (Reported) Hyoscyamine 0.15 Mg Tablet, 0.375 MG PO 1-2 BID, (Reported) Multivitamins 1 Tab Tablet, 1 TAB PO DAILY, (Reported) Psyllium 1 Pkt Packet, 1 PKT PO DAILY, (Reported) Patient Home Medication List Home Medication List Reviewed: Yes Review of Systems Review of Systems Constitutional: No no symptoms reported; see HPI; No chills, No diaphoresis, No dizziness, No fever, No malaise, No weakness, No weight gain, No weight loss, No other EENTM: No see HPI, No no symptoms reported, No ear discharge, No hearing loss, No ear pain, No blurred vision, No double vision, No eye pain, No tearing, No vision loss, No dental problems, No hoarseness, No mouth pain, No mouth swelling, No epistaxis, No nose congestion, No nose pain, No throat pain, No throat swelling, No other Respiratory: No no symptoms reported, No see HPI, No cough, No dyspnea on exertion, No hemoptysis, No orthopnea, No phlegm, No short of breath, No stridor, No wheezing, No other Cardiovascular: No no symptoms reported, No see HPI, No chest pain, No edema, No Hx of Intervention, No palpitations, No syncope, No vascular heart diseas, No other Gastrointestinal: No RUQ, No LUQ, No RLQ, No LLQ, No no symptoms reported, No see HPI, No abdominal pain, No constipation, No diarrhea, No dysphagia, No hematemesis, No heartburn, No jaundice, No loss of appetite, No melena, No nausea, No vomiting, No other Genitourinary: No no symptoms reported, No see HPI, No decreased output, No discharge, No dysuria, No frequency, No hematuria, No hesitancy, No incontinence, No nocturia, No pain, No other Musculoskeletal: No no symptoms reported, No see HPI, No back pain, No gout, No joint pain, No joint swelling, No muscle pain, No muscle stiffness, No muscle cramps, No muscle twitching, No muscle weakness, No neck pain, No other Skin: No no symptoms reported, No see HPI, No change in color, No change in hair/nails, No dryness, No hx of skin cancer, No lesions, No lumps, No pruritus, No rash, No other Psychiatric/Neurological: Denies No Symptoms Reported, Denies See HPI, Denies Anxiety, Denies Depressed, Denies Emotional Problems, Denies Headache, Denies Numbness, Denies Paresthesia, Denies Pre-Existing Deficit, Denies Seizure, Denies Tingling, Denies Tremors, Denies Weakness, Denies Other Hematologic/Lymphatic: Denies No Symptoms Reported, Denies See HPI, Denies Anemia, Denies Blood Clots, Denies Easy Bleeding, Denies Easy Bruising, Denies Swollen Glands, Denies Other All Other Systems Reviewed Negative Unless Noted: Yes Past Tvulluy-Bsyeqg-Rlzycz Hx Patient Social History Alcohol Use: Denies Use Recreational Drug Use: No Smoking Status: Never a Smoker 2nd Hand Smoke Exposure: No Recent Hopitalizations: No Physical Abuse: No Sexual Abuse: No Mistreated: No Fear: No Immunizations Up To Date Tetanus Booster (TDap): Unknown Seasonal Allergies Seasonal Allergies: No Past Medical History Surgeries: Yes (Hernia Repair) Tonsillectomy Respiratory: No Cardiac: Yes Atrial Fibrillation, Heart Attack, Hypertension 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 oz. kg; 23.00 BMI Method:Stated General Appearance: No Apparent Distress, WD/WN HEENT: PERRL/EOMI, TMs Normal, Normal ENT Inspection, Pharynx Normal Neck: Full Range of Motion, Normal Inspection, Non Tender, Supple Respiratory: Chest Non Tender, Lungs Clear, Normal Breath Sounds, No Accessory Muscle Use, No Respiratory Distress Cardiovascular: Regular Rate, Rhythm, No Edema, No Gallop, No JVD, No Murmur, Normal Peripheral Pulses Gastrointestinal: Normal Bowel Sounds, No Organomegaly, No Pulsatile Mass, Non Tender, Soft Back: Normal Inspection, No CVA Tenderness, No Vertebral Tenderness Neurologic/Psychiatric: Alert, Oriented x3, No Motor/Sensory Deficits, Normal Mood/Affect, Other (patient has chronic Parkinson's disease with chronic tremor. Patient appears to be his baseline.) Skin: Normal Color, Warm/Dry Procedures/Interventions Suture Size: 4-0, 5-0 Progress/Results/Core Measures Suspected Sepsis SIRS Temperature: Pulse: Respiratory Rate: Blood Pressure / Mean: Results/Orders Vital Signs/I&O Capillary Refill : Progress Note : Time: 08:32 Progress Note Negative evaluation in the emergency department. Vital signs are stable. Patient has no acute complaints. Patient had an abnormal reading on pulse ox regarding both pulse and oxygenation due to patient's severe Parkinson's disease patient has had numerous evaluations do the same complaint in the past with negative evaluations in the emergency department. Patient has no acute complaints. Vital signs are stable heart rate is 70 pulse ox is 100% on room air blood pressures 124/65 at discharge. Patient does not appear to be acutely sick patient be discharged home and advised follow-up with primary care physician. Departure Impression Primary Impression: Encounter for medical screening examination Additional Impression: Parkinson's disease (tremor, stiffness, slow motion, unstable posture) Disposition: 01 HOME, SELF-CARE Condition: Stable Departure-Patient Inst. Decision time for Depature: 08:33 Referrals: SELF,SIL MAYORGA (PCP/Family) Primary Care Physician Patient Instructions: Parkinson Disease (DC) Add. Discharge Instructions: Normal exam in the emergency department. Blood pressure 124/65 heart rate 68 pulse ox is 100% on room air at discharge. Chronic conditions appear to be stable. Follow-up with primary care physician as needed. All discharge instructions reviewed with patient and/or family. Voiced understanding. RAYMUNDO JUSTICE MD Oct 26, 2019 08:34
--- OUTSIDE RECORDS SUMMARY | 2019-10-26 08:51 | XMS REPORT | Continuity of Care Document ---
Author Organization Unknown Address Unknown Phone Unavailable Allergies Active Description Code Type Severity Reaction Onset Reported/Identified Relationship to Patient Clinical Status Yes Penicillins [id number] Drug Aller gy Unknown N/A 04/25/2019 Medications [...] OF BREATH 08/09/2019 JUAN MANUEL MANZO MD R Ot 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 08/09/2019 JUAN MANUEL MANZO MD R Ot R06.0 2 SHORTNESS OF BREATH 09/16/2019 RAYMUNDO JUSTICE MD Ot E86.0 DEHYDRATION 09/16/2019 RAYMUNDO JUSTICE MD Ot E87.1 HYPO-OSMOLALITY AND HYPONATREMIA 09/16/2019 RAYMUNDO JUSTICE MD Ot G2 0 PARKINSON'S DISEASE 09/16/2019 RAYMUNDO JUSTICE MD Ot I1 0 ESSENTIAL (PRIMARY) HYPERTENSION 09/16/2019 RAYMUNDO JUSTICE MD Ot R19.7 DIARRHEA, UNSPECIFIED 09/16/2019 RAYMUNDO JUSTICE MD Ot Z85.46 PERSONAL HISTORY OF MALIGNANT NEOPLASM O 09/16/2019 RAYMUNDO JUSTICE MD Ot Z88.0 ALLERGY STATUS TO PENICILLIN 09/16/2019 JUAN MANUEL MANZO MD Ot 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 09/16/2019 JUAN MANUEL MANZO MD Ot R06.0 2 SHORTNESS OF BREATH 09/20/2019 RAYMUNDO JUSTICE MD Ot E86.0 DEHYDRATION 09/20/2019 RAYMUNDO JUSTICE MD, Ot E87.1 HYPO-OSMOLALITY AND HYPONATREMIA 09/20/2019 RAYMUNDO JUSTICE MD Ot G2 0 PARKINSON'S DISEASE 09/20/2019 RAYMUNDO JUSTICE MD, Ot I1 0 ESSENTIAL (PRIMARY) HYPERTENSION 09/20/2019 RAYMUNDO JUSTICE MD Ot R19.7 DIARRHEA, UNSPECIFIED 09/20/2019 RAYMUNDO JUSTICE MD, Ot Z85.46 PERSONAL HISTORY OF MALIGNANT NEOPLASM O 09/20/2019 RAYMUNDO JUSTICE MD Ot Z88.0 ALLERGY STATUS TO PENICILLIN 10/13/2019 TERESA DOATILIO Ot I1 0 ESSENTIAL (PRIMARY) HYPERTENSION 10/13/2019 TERESA DOATILIO Ot N40.0 BENIGN PROSTATIC HYPERPLASIA WITHOUT LOW 10/13/2019 TERESA DOATILIO Ot R40.2142 COMA SCALE, EYES OPEN, SPONTANEOUS, EMR 10/13/2019 TERESA ATILIO CLIFTON Ot R40.2252 COMA SCALE, BEST VERBAL RESPONSE, ORIENT 10/13/2019 TERESA DOATILIO Ot R40.2362 COMA SCALE, BEST MOTOR RESPONSE, OBEYS C 10/13/2019 TERESA DOATILIO Ot S01.01XA LACERATION WITHOUT FOREIGN BODY OF SCALP 10/13/2019 TERESA DOATILIO Ot S06.0X0A CONCUSSION WITHOUT LOSS OF CONSCIOUSNESS 10/13/2019 [facility], ATILIO Lockett Ot S09.90XA UNSPECIFIED INJURY OF HEAD, INITIAL ENCO 10/13/2019 [facility], ATILIO Lockett Ot S51.012A LACERATION WITHOUT FOREIGN BODY OF LEFT 10/13/2019 [facility], ATILIO Lockett Ot W06.XXXA FALL FROM BED, INITIAL ENCOUNTER 10/13/2019 [facility], ATILIO Lockett Ot Z85.46 PERSONAL HISTORY OF MALIGNANT NEOPLASM O 10/13/2019 [facility], ATILIO Lockett Ot Z88.0 ALLERGY STATUS TO [facility]ICILLIN [facility] G20 PARKINSON'S DISEASE 10/19/[facility] Ot 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, MINOO Keenan Ot I10 ESSENTIAL (PRIMARY) HYPERTENSION 10/19/2019 [facility] Keenan Ot R55 SYNCOPE AND COLLAPSE 10/19/2019 [facility] Keenan Ot Z85.46 PERSONAL HISTORY OF MALIGNANT NEOPLASM O 10/19/2019 [facility] Keenan Ot Z88.0 ALLERGY STATUS TO PENICILLIN Procedures There is no data. Results Test Result Range CMP - 10/09/18 14:05 GLUCOSE 102 mg/dL 65-139 UREA NITROGEN (BUN) 25 mg/dL 7-25 CREATININE 1.11 mg/dL 0.70-1.11 eGFR NON-AFR. CHADIAN 61 mL/min/1.73m2 > OR = 60 eGFR [...] AST 12 U/L 10-35 ALT 5 U/L 9- [facility] - 10/29/18 08:50 GLUCOSE 90 mg/dL 65-99 UREA NITROGEN (BUN) 24 mg/dL 7-25 CREATININE 1.04 mg/dL 0.70-1.11 eGFR NON-AFR. CHADIAN 66 mL/min/1.73m2 > OR = 60 eGFR [...] 13 U/L 10-35 ALT 5 U/L - [facility] - 05/06/19 14:49 GLUCOSE 98 mg/dL 65-99 UREA NITROGEN (BUN) 26 mg/dL 7-25 CREATININE 1.21 mg/dL 0.70-1.11 eGFR NON-AFR. CHADIAN 54 mL/min/1.73m2 > OR = 60 eGFR [...] lactic acid measurement (moles/volume) 1.44 mmol/L 0.50-2.00 Complete urinalysis with reflex to cultu re - 10/15/19 11:35 Urine color determination YELLOW NRG Urine clarity determination CLEAR NR G Urine pH measurement by test strip 7.0 5-9 Specific gravity of urine by test [...] leukocyte count by microscopy (number/high power field) NONE NRG Bacteria detection in urine sediment by light microsco py NONE NRG Squamous epithelial cells detection in u rine sediment by light microscopy 0-2 NRG Crystals detection in urine sediment by light microsco py NONE NRG Casts detection in urine sediment by light microscopy PRESENT NRG Mucus detection in urine sediment by light microscopy NEGATIVE NRG Complete urinalysis with reflex to culture NO NRG Hyaline casts detection in urine sediment by light [place] roscopy 0-2 NRG Encounters ACCT No. Visit Date/Time Discharge Status Pt. Type Provider Facility Loc./Unit Complaint [id number] 05/06/2019 14:15:00 05/06/2019 23:59: 59 CLS Outpatient [facility] [id number] 05/06/2019 14:15:00 Document Registration [id number] 10/29/2018 17:45:00 Document Registration [id number] 10/09/2018 13:15:00 Document Registration [id number] 10/15/2019 10:19:00 13:01:00 DIS Outpatient ROVENMINOO PRIEST DO Via [facility] ER FS SEIZURE LIKE SY MPTOMS [id number] 09/24/2019 04:53:00 07:00:00 DIS Outpatient ATILIO MOORE DO [facility] ER FS FALL,HEAD INJURY [id number] 09/16/2019 10:12:00 12:30:00 DIS Emergency VINH MAYORGA, RAYMUNDO Ross [facility] ER FS AMS [id number] 07/05/2019 12:15:00 23:59:59 CLS Outpatient ANAIS MAYORGA, JUAN MANUEL Hayes [facility] RAD FS R05 R06.02 [id number] 07/03/2019 11:39:00 12:40:00 DIS Emergency MAGNOVENSTMINOO CAMARA DO [facility] ER FS LOW ABD PAIN,CO UGH [id number] 07/01/2019 09:38:00 11:57:00 DIS Emergency STANFORD MAYORGA, ABDOULAYE Fuentes [facility] ER FS FALL [id number] 04/25/2019 08:31:00 09:20:00 DIS Emergency SHERRI POWELL DO [facility] ER FS FALL - FACIAL ALBER N
== END 2019-10-26 08:44 | disposition home or self-care (01) ==
LOC: EDUNIT# 08:16 → ER FS 08:18
DX: Z00.01 Encounter for general adult medical examination with abnormal findings (principal); G20 Parkinson's disease; I10 Essential (primary) hypertension; I25.2 Old myocardial infarction; K58.1 Irritable bowel syndrome with constipation; Z85.46 Personal history of malignant neoplasm of prostate; Z88.0 Allergy status to penicillin
CPT/HCPCS: 99283

== ENCOUNTER → 2020-02-05 | Outpatient (CLI) | payer MEDICARE ==
[2020-02-07 07:41] LABS: BACTERIA,URINE TRACE /HPF; BILIRUBIN,URINE NEGATIVE (NEGATIVE); CLARITY,URINE CLEAR; COLOR,URINE YELLOW; GLUCOSE, URINE (UA) NEGATIVE (NEGATIVE); KETONES,URINE TRACE (NEGATIVE); LEUKOCYTE ESTERASE ,URINE NEGATIVE (NEGATIVE); NITRITE,URINE NEGATIVE (NEGATIVE); PROTEIN,URINE NEGATIVE (NEGATIVE); WBC,URINE 0-2 /HPF
[2020-02-07 07:42] LABS: HYALINE CASTS, URINE 25-50 /LPF
== END ==
LOC: PVFS 15:08
PROVIDERS: ATTEND Family Medicine
DX: R35.0 Frequency of micturition (principal); R30.9 Painful micturition, unspecified
CPT/HCPCS: 81000

== ENCOUNTER 2020-04-27 02:39 | Emergency (ER) | payer MEDICARE ==
[~2020-04-27] VITALS: Ht 175.3 cm; Wt 75.9 kg
[2020-04-27] MEDS ORDERED: NS IV 1000 ML 1,000 ML ONE (02:54)
--- NOTE | 2020-04-27 02:55 | ED Chest Pain ---
General Stated Complaint: CHEST PAIN History of Present Illness Date Seen by Provider: Apr 27, 2020 Time Seen by Provider: 02:51 Initial Comments 84-year-old male presents with pain between his shoulder blades. Patient reports that this started approximately an hour prior to arrival. It is sharp pain in his chest that shot by 2 shoulder blades. No diaphoresis, no shortness of breath. Patient reports she's had this in the past but normally goes away. He is not complaining of any nausea or vomiting. Patient does have a history of Parkinson's. Allergies and Home Medications Allergies Coded Allergies: Penicillins (Verified Allergy, Unknown, 04/25/19) Home Medications Apixaban 5 Mg Tablet, 5 MG PO BID TAKE 2 TABLETS BID X 7 DAYS, THEN 1 TABLET BID Prescribed by: SHERRI POWELL on 04/27/20632 Calcium Carbonate/Vitamin D3 1 Each Capsule, 2 EACH PO DAILY, (Reported) Diltiazem HCl 120 Mg Cap.er.24h, 120 MG PO DAILY Prescribed by: SHERRI POWELL on 04/27/20632 Docusate Sodium 100 Mg Capsule, 200 MG PO HS, (Reported) Doxazosin Mesylate 2 Mg Tablet, 2 MG PO DAILY, (Reported) Hyoscyamine 0.15 Mg Tablet, 0.375 MG PO 1-2 BID, (Reported) Multivitamins 1 Tab Tablet, 1 TAB PO DAILY, (Reported) Psyllium 1 Pkt Packet, 1 PKT PO DAILY, (Reported) Patient Home Medication List Home Medication List Reviewed: Yes Review of Systems Review of Systems Constitutional: No chills, No fever, No malaise Respiratory: Denies Cough, Denies Shortness of Air Cardiovascular: Chest Pain; Denies Lightheadedness Gastrointestinal: Denies Diarrhea, Denies Nausea, Denies Vomiting Genitourinary: No Symptoms Reported Musculoskeletal: see HPI Skin: no symptoms reported Psychiatric/Neurological: No Symptoms Reported Endocrine: No Symptoms Reported Hematologic/Lymphatic: No Symptoms Reported Past Mbzzrvy-Syqdyo-Chocss Hx Past Med/Social Hx: Reviewed Nursing Past Med/Soc Hx Patient Social History 2nd Hand Smoke Exposure: No Recent Foreign Travel: No Contact w/Someone Who Travel: No Recent Hopitalizations: No Immunizations Up To Date Tetanus Booster (TDap): Unknown Seasonal Allergies Seasonal Allergies: No Past Medical History Surgeries: Yes (Hernia Repair) Tonsillectomy Respiratory: No Cardiac: Yes Atrial Fibrillation, Heart Attack, Hypertension 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) Parkinson's Disease Reproductive Disorders: No Sexually Transmitted Disease: No Genitourinary: Yes Benign Prostatic Hyperpl Gastrointestinal: Yes Chronic Constipation, Irritable Bowel Musculoskeletal: Yes (ARTHRITIS) Arthritis Endocrine: No HEENT: No Cancer: Yes Prostate Did You Recieve Any Treatments: Yes What Type of Treatment Did You: Radiation Psychosocial: No Integumentary: No Blood Disorders: No Physical Exam Vital Signs Vital Signs - First Documented 04/27/20 02:58 Temp 36.0 Pulse 118 Resp 24 B/P (MAP) 140/95 (110) Pulse Ox 96 O2 Delivery Room Air Capillary Refill : Height, Weight, BMI Height: '" Weight: lbs. oz. kg; 22.00 BMI Method:Stated General Appearance: No Apparent Distress Neck: Non Tender, Supple Respiratory: Decreased Breath Sounds; No Wheezing Cardiovascular: Normal Peripheral Pulses, Tachycardia Gastrointestinal: Non Tender, Soft Extremity: Normal Capillary Refill, Normal Inspection Neurologic/Psychiatric: Alert, No Motor/Sensory Deficits, Other (fine tremors) Skin: Normal Color, Warm/Dry Procedures/Interventions Suture Size: 4-0, 5-0 Progress/Results/Core Measures Results/Orders Lab Results Laboratory Tests Test 04/27/20 02:45 04/27/20 05:05 04/27/20 08:00 Range/Units White Blood Count 8.6 4.3-11.0 10^3/uL Red Blood Count 4.12 L 4.35-5.85 10^6/uL Hemoglobin 12.5 L 13.3-17.7 G/DL Hematocrit 37 L 40-54 % Mean Corpuscular Volume 90 80-99 FL Mean Corpuscular Hemoglobin 30 25-34 PG Mean Corpuscular Hemoglobin Concent 34 32-36 G/DL Red Cell Distribution Width 13.5 10.0-14.5 % Platelet Count 241 130-400 10^3/uL Mean Platelet Volume 10.2 7.4-10.4 FL Immature Granulocyte % (Auto) 1 % Neutrophils (%) (Auto) 56 42-75 % Lymphocytes (%) (Auto) 29 12-44 % Monocytes (%) (Auto) 9 0-12 % Eosinophils (%) (Auto) 4 0-10 % Basophils (%) (Auto) 1 0-10 % Neutrophils # (Auto) 4.9 1.8-7.8 X 10^3 Lymphocytes # (Auto) 2.5 1.0-4.0 X 10^3 Monocytes # (Auto) 0.8 0.0-1.0 X 10^3 Eosinophils # (Auto) 0.4 H 0.0-0.3 10^3/uL Basophils # (Auto) 0.1 0.0-0.1 10^3/uL Immature Granulocyte # (Auto) 0.1 0.0-0.1 10^3/uL Prothrombin Time 13.9 12.2-14.7 SEC INR Comment 1.0 0.8-1.4 Activated Partial Thromboplast Time 33 24-35 SEC Sodium Level 131 L 135-145 MMOL/L Potassium Level 4.1 3.6-5.0 MMOL/L Chloride Level 96 L 98-107 MMOL/L Carbon Dioxide Level 24 21-32 MMOL/L Anion Gap 11 5-14 MMOL/L Blood Urea Nitrogen 26 H 7-18 MG/DL Creatinine 1.12 0.60-1.30 MG/DL Estimat Glomerular Filtration Rate > 60 BUN/Creatinine Ratio 23 Glucose Level 100 70-105 MG/DL Calcium Level 9.2 8.5-10.1 MG/DL Corrected Calcium 9.6 8.5-10.1 MG/DL Magnesium Level 2.0 1.6-2.4 MG/DL Total Bilirubin 0.4 0.1-1.0 MG/DL Aspartate Amino Transf (AST/SGOT) 9 5-34 U/L Alanine Aminotransferase (ALT/SGPT) 5 0-55 U/L Alkaline Phosphatase 81 40-136 U/L Myoglobin 43.4 10.0-92.0 NG/ML Troponin I < 0.30 < 0.30 < 0.30 <0.30 NG/ML Total Protein 6.5 6.4-8.2 GM/DL Albumin 3.5 3.2-4.5 GM/DL My Orders Orders - POWELL,SHERRI L DO Cbc With Automated Diff (04/27/20 02:55) Magnesium (04/27/20 02:55) Chest 1 View Ap/Pa Only (04/27/20 02:55) Ekg Tracing (04/27/20 02:55) Comprehensive Metabolic Panel (04/27/20 02:55) Myoglobin Serum (04/27/20 02:55) Protime With Inr (04/27/20 02:55) Partial Thromboplastin Time (04/27/20 02:55) Monitor-Rhythm Ecg Trace Only (04/27/20 02:55) Aspirin Chewable Tablet (Baby Aspirin Ch (04/27/20 03:00) Ed Iv/Invasive Line Start (04/27/20 02:55) Troponin I Fs (04/27/20 02:55) Ns Iv 1000 Ml (Sodium Chloride 0.9%) (04/27/20 02:54) Metoprolol Tartrate Injection (Lopressor (04/27/20 04:15) Iohexol Injection (Omnipaque 350 Mg/Ml 1 (04/27/20 04:30) Received Contrast (Hold Metformin- Contr (04/27/20 04:30) Sodium Chloride Flush (Catheter Flush Sy (04/27/20 04:30) Ns (Ivpb) (Sodium Chloride 0.9% Ivpb Bag (04/27/20 04:30) Diltiazem Injection (Cardizem Injection) (04/27/20 04:30) Troponin I Fs (04/27/20 04:34) Ct Angio Chest/Abd W (04/27/20 04:04) Apixaban Tablet (Eliquis Tablet) (04/27/20 06:30) Medications Given in ED Vital Signs/I&O 04/27/20 04/27/20 02:58 09:04 Temp 36.0 36.0 Pulse 118 83 Resp 24 22 B/P (MAP) 140/95 (110) 111/72 (110) Pulse Ox 96 97 O2 Delivery Room Air Room Air Progress Progress Note : Time: 06:26 Progress Note Patient has been pain free since shortly after arrival. Patient was given 5 of metoprolol and 15 mg of Cardizem. His heart rate has improved to the mid 60s and is rate controlled. At this time he has had 2 negative troponins approximately 4 hours after the pain started. Patient has no known history of atrial fib. I did discuss with Dr. Senior. We will recheck another troponin at around a 6 hour emile. If the troponin is negative patient will be discharged back to the [facility]. We will start him on Eliquis 5 mg twice a day Cardizem CD 120 mg. He will then need to follow-up with his netting inspector or with the netting inspector in [place] next week for recheck and further outpatient evaluation. Initial ECG Impression Date: Apr 27, 2020 Initial ECG Impression Time: 02:46 Initial ECG Rate: 123 Initial ECG Rhythm: A Fib/Flutter Initial ECG Impression: Nonspecific Changes Comment Heart rate 123, atrial fib with PVCs EKG : EKG Time: 06:29 Rhythm: A Fib/Flutter ECG Impression: Atrial Fibrillation Departure Impression Primary Impression: Atrial fibrillation/flutter Disposition: 01 HOME, SELF-CARE Condition: Stable Departure-Patient Inst. Referrals: SELFSIL MD (PCP/Family) Primary Care Physician Patient Instructions: Atrial Fibrillation (DC), Atrial Flutter (DC), Medicines for Atrial Fibrillation Add. Discharge Instructions: Please follow-up with your netting inspector next week for a recheck Scripts Diltiazem HCl (Cardizem Cd) 120 Mg Cap.er.24h 120 MG PO DAILY, #30 CAP Prov: SHERRI POWELL DO 04/27/20 Apixaban (Eliquis) 5 Mg Tablet 5 MG PO BID for 30 Days, #72 TAB TAKE 2 TABLETS BID X 7 DAYS, THEN 1 TABLET BID Prov: SHERRI POWELL DO 04/27/20 SHERRI POWELL DO Apr 27, 2020 02:55
[2020-04-27] MEDS ORDERED: ASPIRIN 81 MG CHEW (CHILDREN'S ASA) PO ONE (03:00)
--- NOTE | 2020-04-27 03:05 | NUR ---
ems gave 4 baby asa in route.
[2020-04-27 03:27] LABS: BASOPHILS # (AUTO) 0.1 10^3/uL (0.0-0.1); BASOPHILS % (AUTO) 1 % (0-10); EOSINOPHILS # (AUTO) 0.4 10^3/uL (0.0-0.3); EOSINOPHILS % (AUTO) 4 % (0-10); HEMATOCRIT 37 % (40-54); HEMOGLOBIN 12.5 G/DL (13.3-17.7); LYMPHOCYTES # (AUTO) 2.5 X 10^3 (1.0-4.0); LYMPHOCYTES % (AUTO) 29 % (12-44); MEAN CORPUSCULAR HEMOGLOBIN 30 PG (25-34); MEAN CORPUSCULAR HGB CONC 34 G/DL (32-36); MEAN CORPUSCULAR VOLUME 90 FL (80-99); MEAN PLATELET VOLUME 10.2 FL (7.4-10.4); MONOCYTES # (AUTO) 0.8 X 10^3 (0.0-1.0); MONOCYTES % (AUTO) 9 % (0-12); NEUTROPHILS # (AUTO) 4.9 X 10^3 (1.8-7.8); NEUTROPHILS % (AUTO) 56 % (42-75); PLATELET COUNT 241 10^3/uL (130-400); WHITE BLOOD COUNT 8.6 10^3/uL (4.3-11.0)
[2020-04-27 03:35] LABS: PROTHROMBIN TIME PATIENT 13.9 SEC (12.2-14.7)
[2020-04-27 03:44] LABS: ALANINE AMINOTRANSFERASE 5 U/L (0-55); ALKALINE PHOSPHATASE 81 U/L (40-136); BILIRUBIN,TOTAL 0.4 MG/DL (0.1-1.0); BUN/CREATININE RATIO 23; CALCIUM 9.2 MG/DL (8.5-10.1); CARBON DIOXIDE 24 MMOL/L (21-32); CHLORIDE 96 MMOL/L (98-107); CREATININE SERUM 1.12 MG/DL (0.60-1.30); GFR ESTIMATED > 60; GLUCOSE 100 MG/DL (70-105); POTASSIUM 4.1 MMOL/L (3.6-5.0); SODIUM 131 MMOL/L (135-145); TOTAL PROTEIN 6.5 GM/DL (6.4-8.2)
[2020-04-27 03:45] LABS: ALBUMIN 3.5 GM/DL (3.2-4.5)
[2020-04-27] MEDS ORDERED: meTOprolol 5 MG/5 ML (LOPRESSOR) VIAL IV ONE (04:15)
[2020-04-27] MEDS ORDERED: HOLD METFORMIN - RECEIVED CONTRAST 20 ML VIAL IV SCH (04:30)
[2020-04-27] MEDS ORDERED: CATHETER FLUSH 10 ML SYR IV PRN (04:30)
[2020-04-27] MEDS ORDERED: IOHEXOL 350 MG/ML 150 ML (OMNIPAQUE 350) VIAL IV ONE (04:30)
[2020-04-27] MEDS ORDERED: NS 100 ML (IVPB) BAG IV ONE (04:30)
--- NOTE | 2020-04-27 06:22 | Diagnostic Imaging Report ---
PROCEDURE: CT angiography of the abdomen and chest with and without contrast. TECHNIQUE: After intravenous administration of contrast, thin section axial CT angiography of the abdomen and chest were obtained. 3D MIP reformats were provided. Auto Exposure Controls were utilized during the CT exam to meet ALARA standards for radiation dose reduction. INDICATION: Chest pain and tachycardia There is coarse interstitial fibrosis in the lungs. There are no effusions or pneumothoraces. There is calcific atherosclerosis of the thoracic aorta but no aneurysm or dissection. There are no pulmonary emboli. The abdominal aorta has some atherosclerotic change with mild ectasia distally but no aneurysm. The celiac and superior mesenteric arteries are patent. There is mild atherosclerotic plaque in the proximal superior mesenteric artery. Renal arteries appear to be widely patent. Inferior mesenteric artery is patent with mild narrowing at its origin. Common iliac arteries and visualized portions of the internal and external iliac arteries are widely patent. Liver appears normal. Gallbladder appears normal. Pancreas appears normal. Spleen appears normal. Adrenals appear normal. Kidneys appear normal. There is no abdominal lymphadenopathy. There is no intraperitoneal free air or free fluid. Small bowel is not dilated. Colon is unremarkable. IMPRESSION: Atherosclerotic changes of the thoracic and abdominal aorta. There is no evidence of aneurysm. There is no dissection. There is mild ectasia of the infrarenal abdominal aorta. Patient has severe pulmonary fibrosis. Agree with preliminary interpretation. Dictated by: Dictated on workstation # [id number]
[2020-04-27] MEDS ORDERED: APIXABAN 5 MG (ELIQUIS) TABLET PO ONE (06:30)
[2020-04-27] MEDS ORDERED: DILT120C82 PO (06:33)
[2020-04-27] MEDS ORDERED: APIX5TAB PO (06:33)
--- NOTE | 2020-04-27 06:57 | Diagnostic Imaging Report ---
Indication: Chest pain Portable chest 3:02 AM There are coarse interstitial infiltrates throughout both lungs with some patchy areas of alveolar consolidation. There is no effusion or pneumothorax. IMPRESSION: Chronic interstitial fibrosis unchanged compared to 10/15/2019. Dictated by: Dictated on workstation # [id number]
[2020-04-27] MEDS ORDERED: ASPIRIN 81 MG CHEW (CHILDREN'S ASA) ONE (07:38)
[2020-04-27] MEDS ORDERED: dilTIAZem120 MG (CARDIZEM CD) CAP PO ONE (08:17)
--- NOTE | 2020-04-27 08:58 | NUR ---
Updated Mirlande at [facility] on patient condition, that patient is being discharged, needs cardiology follow-up, and new scripts were sent to [facility].
[2020-04-27] MEDS ORDERED: dilTIAZem120 MG (CARDIZEM CD) CAP PO SCH (09:00)
[2020-04-27 09:04] VITALS: BP 111/72
== END 2020-04-27 09:15 | disposition home or self-care (01) ==
LOC: EDUNIT# 02:39 → ER FS 02:41
DX: I48.91 Unspecified atrial fibrillation (principal); I25.2 Old myocardial infarction; I10 Essential (primary) hypertension; N40.0 Benign prostatic hyperplasia without lower urinary tract symptoms; Z85.46 Personal history of malignant neoplasm of prostate; Z88.0 Allergy status to penicillin; Z79.01 Long term (current) use of anticoagulants
CPT/HCPCS: 36415; 71045; 71275; 74175; 80053; 83735; 83874; 84484; 85025; 85610; 85730

== ENCOUNTER 2020-05-18 12:45 | Emergency (ER) | payer MEDICARE ==
[~2020-05-18] VITALS: Ht 175.3 cm; Wt 75.9 kg
[~2020-05-18 12:45] MED LIST changes: +APIX5TAB PO; +DILT120C82 PO
[2020-05-18] MEDS ORDERED: NS IV 1000 ML 1,000 ML IV SCH (13:00)
--- NOTE | 2020-05-18 13:06 | ED General ---
General Chief Complaint: Dizziness/Syncope Stated Complaint: SYNCOPE Source of Information: Patient, EMS History of Present Illness Date Seen by Provider: May 18, 2020 Time Seen by Provider: 12:47 Initial Comments 84-year-old male presenting with complaints of syncopal episode at [facility] after getting his first COVID vaccine. He states he also usually takes and have at this time and is very tired. He thinks that he may have just fallen asleep rather than actually passed out. He denies having any dizziness or lightheadedness. He had a reported low blood pressure [facility] and had an IV with some fluid started by EMS. He reports he feels at his baseline right now and is just a little tired. He denies any pain, nausea, vomiting, diarrhea, pain with urination, fever, chills, dizziness, headache. Allergies and Home Medications Allergies Coded Allergies: Penicillins (Verified Allergy, Unknown, 04/25/19) Home Medications Apixaban 5 Mg Tablet, 5 MG PO BID TAKE 2 TABLETS BID X 7 DAYS, THEN 1 TABLET BID Prescribed by: SHERRI POWELL on 04/27/20632 Calcium Carbonate/Vitamin D3 1 Each Capsule, 2 EACH PO DAILY, (Reported) Diltiazem HCl 120 Mg Cap.er.24h, 120 MG PO DAILY Prescribed by: SHERRI POWELL on 04/27/20632 Docusate Sodium 100 Mg Capsule, 200 MG PO HS, (Reported) Doxazosin Mesylate 2 Mg Tablet, 2 MG PO DAILY, (Reported) Hyoscyamine 0.15 Mg Tablet, 0.375 MG PO 1-2 BID, (Reported) Multivitamins 1 Tab Tablet, 1 TAB PO DAILY, (Reported) Psyllium 1 Pkt Packet, 1 PKT PO DAILY, (Reported) Patient Home Medication List Home Medication List Reviewed: Yes Review of Systems Review of Systems Constitutional: see HPI; No chills, No fever EENTM: see HPI Respiratory: No cough, No short of breath Cardiovascular: No chest pain Gastrointestinal: No abdominal pain; constipation; No diarrhea, No nausea, No vomiting Genitourinary: nocturia (urinates every few hours) Musculoskeletal: no symptoms reported Skin: no symptoms reported Psychiatric/Neurological: Denies Headache, Denies Seizure Past Zovqjev-Jjsjev-Sxmsuk Hx Past Med/Social Hx: Reviewed Nursing Past Med/Soc Hx Patient Social History 2nd Hand Smoke Exposure: No Recent Hopitalizations: No Immunizations Up To Date Tetanus Booster (TDap): Unknown Seasonal Allergies Seasonal Allergies: No Past Medical History Surgeries: Yes (Hernia Repair) Tonsillectomy Respiratory: No Cardiac: Yes Atrial Fibrillation, Heart Attack, Hypertension 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) Parkinson's Disease Reproductive Disorders: No Sexually Transmitted Disease: No Genitourinary: Yes Benign Prostatic Hyperpl Gastrointestinal: Yes Chronic Constipation, Irritable Bowel Musculoskeletal: Yes (ARTHRITIS) Arthritis Endocrine: No HEENT: No Cancer: Yes Prostate Did You Recieve Any Treatments: Yes What Type of Treatment Did You: Radiation Psychosocial: No Integumentary: No Blood Disorders: No Physical Exam Vital Signs Vital Signs - First Documented 05/18/20 12:45 Temp 36.2 Pulse 52 Resp 20 B/P (MAP) 104/49 (67) Pulse Ox 96 O2 Delivery Room Air Capillary Refill : Height, Weight, BMI Height: '" Weight: lbs. oz. kg; 24.00 BMI Method:Stated General Appearance: No Apparent Distress, Thin HEENT: Pharynx Normal Neck: Non Tender, Supple Respiratory: Chest Non Tender, Lungs Clear, Normal Breath Sounds Cardiovascular: Regular Rate, Rhythm, Normal Peripheral Pulses Gastrointestinal: No Pulsatile Mass, Non Tender, Soft Extremity: Normal Capillary Refill, No Pedal Edema Neurologic/Psychiatric: Alert, Oriented x3, Normal Mood/Affect Skin: Normal Color, Warm/Dry Procedures/Interventions Suture Size: 4-0, 5-0 Progress/Results/Core Measures Suspected Sepsis SIRS Temperature: Pulse: Respiratory Rate: Laboratory Tests 05/18/20 13:00: White Blood Count 8.3 Blood Pressure / Mean: Laboratory Tests 05/18/20 13:00: Creatinine 1.38H, Platelet Count 246, Total Bilirubin 0.3 Results/Orders Lab Results Laboratory Tests Test 05/18/20 13:00 05/18/20 13:28 Range/Units White Blood Count 8.3 4.3-11.0 10^3/uL Red Blood Count 3.95 L 4.35-5.85 10^6/uL Hemoglobin 11.9 L 13.3-17.7 G/DL Hematocrit 36 L 40-54 % Mean Corpuscular Volume 92 80-99 FL Mean Corpuscular Hemoglobin 30 25-34 PG Mean Corpuscular Hemoglobin Concent 33 32-36 G/DL Red Cell Distribution Width 13.8 10.0-14.5 % Platelet Count 246 130-400 10^3/uL Mean Platelet Volume 10.1 7.4-10.4 FL Immature Granulocyte % (Auto) 1 % Neutrophils (%) (Auto) 64 42-75 % Lymphocytes (%) (Auto) 21 12-44 % Monocytes (%) (Auto) 9 0-12 % Eosinophils (%) (Auto) 4 0-10 % Basophils (%) (Auto) 1 0-10 % Neutrophils # (Auto) 5.3 1.8-7.8 X 10^3 Lymphocytes # (Auto) 1.8 1.0-4.0 X 10^3 Monocytes # (Auto) 0.8 0.0-1.0 X 10^3 Eosinophils # (Auto) 0.3 0.0-0.3 10^3/uL Basophils # (Auto) 0.1 0.0-0.1 10^3/uL Immature Granulocyte # (Auto) 0.1 0.0-0.1 10^3/uL Sodium Level 133 L 135-145 MMOL/L Potassium Level 4.7 3.6-5.0 MMOL/L Chloride Level 98 98-107 MMOL/L Carbon Dioxide Level 25 21-32 MMOL/L Anion Gap 10 5-14 MMOL/L Blood Urea Nitrogen 27 H 7-18 MG/DL Creatinine 1.38 H 0.60-1.30 MG/DL Estimat Glomerular Filtration Rate 49 BUN/Creatinine Ratio 20 Glucose Level 101 70-105 MG/DL Calcium Level 9.2 8.5-10.1 MG/DL Corrected Calcium 9.6 8.5-10.1 MG/DL Total Bilirubin 0.3 0.1-1.0 MG/DL Aspartate Amino Transf (AST/SGOT) 10 5-34 U/L Alanine Aminotransferase (ALT/SGPT) < 5 0-55 U/L Alkaline Phosphatase 70 40-136 U/L Total Protein 6.5 6.4-8.2 GM/DL Albumin 3.5 3.2-4.5 GM/DL Urine Color YELLOW Urine Clarity CLEAR Urine pH 5.5 5-9 Urine Specific [place] 1.025 H 1.016-1.022 Urine Protein TRACE H NEGATIVE Urine Glucose (UA) NEGATIVE NEGATIVE Urine Ketones 1+ H NEGATIVE Urine Nitrite NEGATIVE NEGATIVE Urine Bilirubin NEGATIVE NEGATIVE Urine Urobilinogen 0.2 < = 1.0 MG/DL Urine Leukocyte Esterase NEGATIVE NEGATIVE Urine RBC (Auto) NEGATIVE NEGATIVE Urine RBC NONE /HPF Urine WBC RARE /HPF Urine Squamous Epithelial Cells RARE /HPF Urine Crystals NONE /LPF Urine Bacteria FEW H /HPF Urine Casts PRESENT /LPF Urine Hyaline Casts 2-5 H /LPF Urine Mucus MODERATE H /LPF Urine Culture Indicated NO My Orders Orders - ABDOULAYE COYNE MD Comprehensive Metabolic Panel (05/18/20 13:00) Ua Culture If Indicated (05/18/20 13:00) Ed Iv/Invasive Line Start (05/18/20 13:00) Cbc With Automated Diff (05/18/20 13:00) Ns Iv 1000 Ml (Sodium Chloride 0.9%) (05/18/20 13:00) Vital Signs/I&O 05/18/20 05/18/20 12:45 14:35 Temp 36.2 36.2 Pulse 52 65 Resp 20 20 B/P (MAP) 104/49 (67) 144/67 (67) Pulse Ox 96 95 O2 Delivery Room Air Room Air Capillary Refill : Progress Note #1: Progress Note with patient feeling he is at his baseline this could be vasovagal from having vaccination and then also the fact he usually is taking a nap at this time. Will check basic labs and give IVF for hydration. Progress Note #2: Time: 13:43 Progress Note CBC stable. Blood pressure staying stable and consistent with what he was when seen Apr 27 and started on Diltiazem 120 mg BID for atrial fibrillation. This certainly could contribute to hypotension and add on being tired as well as getting vaccination and he likely had vasovagal syncope due to these factors. Chemistry and UA pending. Pt resting comfortably in room. Progress Note #3: Time: 14:14 Progress Note Chemistry shows mild elevation of Bun and Cr to go with dehydration and specific gravity of UA was 1.025 to go with dehydration as well. Pt improved after fluids infused. Discharge to home. Encourage fluids and hydration Departure Impression Primary Impression: Vasovagal syncope Additional Impression: Dehydration Disposition: 01 HOME, SELF-CARE Condition: Improved Departure-Patient Inst. Decision time for Depature: 14:20 Referrals: SELF,SIL MAYORGA (PCP/Family) Primary Care Physician Patient Instructions: Fainting, Adult ED, Vasovagal Response, Dehydration, Adult ED Add. Discharge Instructions: Continue to drink plenty of fluids and stay well hydrated. Follow up with clinic and your regular providers for continued concerns. All discharge instructions reviewed with patient and/or family. Voiced understanding. ABDOULAYE COYNE MD May 18, 2020 13:06
[2020-05-18 13:25] LABS: HEMATOCRIT 36 % (40-54); HEMOGLOBIN 11.9 G/DL (13.3-17.7); MEAN CORPUSCULAR HEMOGLOBIN 30 PG (25-34); WHITE BLOOD COUNT 8.3 10^3/uL (4.3-11.0)
[2020-05-18 13:26] LABS: BASOPHILS % (AUTO) 1 % (0-10); EOSINOPHILS % (AUTO) 4 % (0-10); LYMPHOCYTES % (AUTO) 21 % (12-44); MEAN CORPUSCULAR HGB CONC 33 G/DL (32-36); MEAN CORPUSCULAR VOLUME 92 FL (80-99); MEAN PLATELET VOLUME 10.1 FL (7.4-10.4); MONOCYTES % (AUTO) 9 % (0-12); NEUTROPHILS % (AUTO) 64 % (42-75); PLATELET COUNT 246 10^3/uL (130-400)
[2020-05-18 13:27] LABS: BASOPHILS # (AUTO) 0.1 10^3/uL (0.0-0.1); EOSINOPHILS # (AUTO) 0.3 10^3/uL (0.0-0.3); LYMPHOCYTES # (AUTO) 1.8 X 10^3 (1.0-4.0); MONOCYTES # (AUTO) 0.8 X 10^3 (0.0-1.0); NEUTROPHILS # (AUTO) 5.3 X 10^3 (1.8-7.8)
[2020-05-18 14:14] LABS: BILIRUBIN,URINE NEGATIVE (NEGATIVE); CLARITY,URINE CLEAR; COLOR,URINE YELLOW; GLUCOSE, URINE (UA) NEGATIVE (NEGATIVE); KETONES,URINE 1+ (NEGATIVE); LEUKOCYTE ESTERASE ,URINE NEGATIVE (NEGATIVE); NITRITE,URINE NEGATIVE (NEGATIVE); PH,URINE 5.5 (5-9); PROTEIN,URINE TRACE (NEGATIVE); WBC,URINE RARE /HPF
[2020-05-18 14:15] LABS: BACTERIA,URINE FEW /HPF; SQUAMOUS EPITHELIAL CELL,UR RARE /HPF
[2020-05-18 14:16] LABS: CHLORIDE 98 MMOL/L (98-107); POTASSIUM 4.7 MMOL/L (3.6-5.0); SODIUM 133 MMOL/L (135-145)
[2020-05-18 14:18] LABS: ALANINE AMINOTRANSFERASE < 5 U/L (0-55); ALBUMIN 3.5 GM/DL (3.2-4.5); ALKALINE PHOSPHATASE 70 U/L (40-136); BILIRUBIN,TOTAL 0.3 MG/DL (0.1-1.0); BUN/CREATININE RATIO 20; CALCIUM 9.2 MG/DL (8.5-10.1); CARBON DIOXIDE 25 MMOL/L (21-32); CREATININE SERUM 1.38 MG/DL (0.60-1.30); GFR ESTIMATED 49; GLUCOSE 101 MG/DL (70-105); TOTAL PROTEIN 6.5 GM/DL (6.4-8.2)
[2020-05-18 14:35] VITALS: BP 144/67
== END 2020-05-18 14:35 | disposition home or self-care (01) ==
LOC: EDUNIT# 12:45 → ER FS 12:47
DX: R55 Syncope and collapse (principal); E86.0 Dehydration; I25.2 Old myocardial infarction; I48.91 Unspecified atrial fibrillation; I10 Essential (primary) hypertension; N40.0 Benign prostatic hyperplasia without lower urinary tract symptoms; Z85.46 Personal history of malignant neoplasm of prostate; Z88.0 Allergy status to penicillin; Z79.01 Long term (current) use of anticoagulants
CPT/HCPCS: 36415; 80053; 81000; 85025

== ENCOUNTER 2020-05-23 10:50 | Emergency (ER) | payer MEDICARE ==
[~2020-05-23] VITALS: Ht 175.3 cm; Wt 76.4 kg
--- NOTE | 2020-05-23 11:23 | ED General ---
General Chief Complaint: General Problems/Pain History of Present Illness Date Seen by Provider: May 23, 2020 Time Seen by Provider: 10:53 Initial Comments 87-year-old male presents for the intermediate with staff complaining he was unresponsive this morning. On EMS arrival, patient was asleep, but easily awakened when moved to their gurney and then patient was talkative and in no distress. Vital signs stable. Patient without complaint. Alert, oriented and cooperative on arrival. Allergies and Home Medications Allergies Coded Allergies: Penicillins (Verified Allergy, Unknown, 04/25/19) Home Medications Apixaban 5 Mg Tablet, 5 MG PO BID TAKE 2 TABLETS BID X 7 DAYS, THEN 1 TABLET BID Prescribed by: SHERRI POWELL on 04/27/20632 Calcium Carbonate/Vitamin D3 1 Each Capsule, 2 EACH PO DAILY, (Reported) Diltiazem HCl 120 Mg Cap.er.24h, 120 MG PO DAILY Prescribed by: SHERRI POWELL on 04/27/20632 Docusate Sodium 100 Mg Capsule, 200 MG PO HS, (Reported) Doxazosin Mesylate 2 Mg Tablet, 2 MG PO DAILY, (Reported) Hyoscyamine 0.15 Mg Tablet, 0.375 MG PO 1-2 BID, (Reported) Multivitamins 1 Tab Tablet, 1 TAB PO DAILY, (Reported) Psyllium 1 Pkt Packet, 1 PKT PO DAILY, (Reported) Patient Home Medication List Home Medication List Reviewed: Yes Review of Systems Review of Systems Constitutional: No chills, No dizziness, No fever, No malaise; weakness (not new) EENTM: no symptoms reported Respiratory: no symptoms reported Cardiovascular: no symptoms reported Gastrointestinal: no symptoms reported Musculoskeletal: no symptoms reported Skin: no symptoms reported Psychiatric/Neurological: No Symptoms Reported, Other (parkinsons Dx) Past Luudrka-Ypbolb-Dqphqg Hx Past Med/Social Hx: Reviewed Nursing Past Med/Soc Hx Patient Social History 2nd Hand Smoke Exposure: No Recent Hopitalizations: No Immunizations Up To Date Tetanus Booster (TDap): Unknown Seasonal Allergies Seasonal Allergies: No Past Medical History Surgeries: Yes (Hernia Repair) Tonsillectomy Respiratory: No Cardiac: Yes Atrial Fibrillation, Heart Attack, Hypertension 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 oz. kg; 24.00 BMI Method:Stated General Appearance: No Apparent Distress, WD/WN HEENT: PERRL/EOMI, Normal ENT Inspection Neck: Non Tender, Supple Respiratory: Chest Non Tender, Lungs Clear, Normal Breath Sounds, No Accessory Muscle Use, No Respiratory Distress Cardiovascular: Regular Rate, Rhythm, No Edema, No JVD, Normal Peripheral Pulses Gastrointestinal: Non Tender, Soft Extremity: Normal Capillary Refill, Non Tender Neurologic/Psychiatric: Alert, Oriented x3, No Motor/Sensory Deficits, Normal Mood/Affect Procedures/Interventions Suture Size: 4-0, 5-0 Progress/Results/Core Measures Suspected Sepsis SIRS Temperature: Pulse: Respiratory Rate: Laboratory Tests 05/23/20 10:35: 05/23/20 10:55: White Blood Count 8.7 Blood Pressure / Mean: Laboratory Tests 05/23/20 10:35: Creatinine 1.03, Total Bilirubin 0.4 05/23/20 10:55: Platelet Count 248 Results/Orders Lab Results Laboratory Tests Test 05/23/20 10:35 05/23/20 10:55 Range/Units Sodium Level 132 L 135-145 MMOL/L Potassium Level 4.2 3.6-5.0 MMOL/L Chloride Level 97 L 98-107 MMOL/L Carbon Dioxide Level 26 21-32 MMOL/L Anion Gap 9 5-14 MMOL/L Blood Urea Nitrogen 23 H 7-18 MG/DL Creatinine 1.03 0.60-1.30 MG/DL Estimat Glomerular Filtration Rate > 60 BUN/Creatinine Ratio 22 Glucose Level 83 70-105 MG/DL Calcium Level 9.3 8.5-10.1 MG/DL Corrected Calcium 9.5 8.5-10.1 MG/DL Total Bilirubin 0.4 0.1-1.0 MG/DL Aspartate Amino Transf (AST/SGOT) 10 5-34 U/L Alanine Aminotransferase (ALT/SGPT) < 5 0-55 U/L Alkaline Phosphatase 67 40-136 U/L Total Protein 6.5 6.4-8.2 GM/DL Albumin 3.7 3.2-4.5 GM/DL White Blood Count 8.7 4.3-11.0 10^3/uL Red Blood Count 4.09 L 4.35-5.85 10^6/uL Hemoglobin 12.4 L 13.3-17.7 G/DL Hematocrit 38 L 40-54 % Mean Corpuscular Volume 92 80-99 FL Mean Corpuscular Hemoglobin 30 25-34 PG Mean Corpuscular Hemoglobin Concent 33 32-36 G/DL Red Cell Distribution Width 13.9 10.0-14.5 % Platelet Count 248 130-400 10^3/uL Mean Platelet Volume 10.6 H 7.4-10.4 FL Immature Granulocyte % (Auto) 1 % Neutrophils (%) (Auto) 64 42-75 % Lymphocytes (%) (Auto) 19 12-44 % Monocytes (%) (Auto) 10 0-12 % Eosinophils (%) (Auto) 5 0-10 % Basophils (%) (Auto) 1 0-10 % Neutrophils # (Auto) 5.6 1.8-7.8 X 10^3 Lymphocytes # (Auto) 1.7 1.0-4.0 X 10^3 Monocytes # (Auto) 0.9 0.0-1.0 X 10^3 Eosinophils # (Auto) 0.4 H 0.0-0.3 10^3/uL Basophils # (Auto) 0.1 0.0-0.1 10^3/uL Immature Granulocyte # (Auto) 0.1 0.0-0.1 10^3/uL My Orders Orders - MINOO IGLESIAS DO Cbc And Manual Diff (05/23/20 11:32) Comprehensive Metabolic Panel (05/23/20 11:32) Cbc With Automated Diff (05/23/20 11:38) Vital Signs/I&O Capillary Refill : Departure Impression Primary Impression: Weakness Additional Impression: Parkinson disease Disposition: 01 HOME, SELF-CARE Condition: Stable Departure-Patient Inst. Decision time for Depature: 12:06 Referrals: SIL PEREIRA MD (PCP/Family) Primary Care Physician Patient Instructions: Generalized Weakness (DC) Add. Discharge Instructions: Follow up with your PCP, Dr Pereira in 1 week, sooner if worse. Return to the ER for any significant changes to your medical condition All discharge instructions reviewed with patient and/or family. Voiced u [place]. MINOO IGLESIAS DO May 23, 2020 11:23
[2020-05-23 11:42] LABS: HEMATOCRIT 38 % (40-54); HEMOGLOBIN 12.4 G/DL (13.3-17.7); MEAN CORPUSCULAR HEMOGLOBIN 30 PG (25-34); MEAN CORPUSCULAR HGB CONC 33 G/DL (32-36); MEAN CORPUSCULAR VOLUME 92 FL (80-99); MEAN PLATELET VOLUME 10.6 FL (7.4-10.4); PLATELET COUNT 248 10^3/uL (130-400); WHITE BLOOD COUNT 8.7 10^3/uL (4.3-11.0)
[2020-05-23 11:43] LABS: BASOPHILS # (AUTO) 0.1 10^3/uL (0.0-0.1); BASOPHILS % (AUTO) 1 % (0-10); EOSINOPHILS # (AUTO) 0.4 10^3/uL (0.0-0.3); EOSINOPHILS % (AUTO) 5 % (0-10); LYMPHOCYTES # (AUTO) 1.7 X 10^3 (1.0-4.0); LYMPHOCYTES % (AUTO) 19 % (12-44); MONOCYTES # (AUTO) 0.9 X 10^3 (0.0-1.0); MONOCYTES % (AUTO) 10 % (0-12); NEUTROPHILS # (AUTO) 5.6 X 10^3 (1.8-7.8); NEUTROPHILS % (AUTO) 64 % (42-75)
[2020-05-23 11:51] LABS: ALANINE AMINOTRANSFERASE < 5 U/L (0-55); ALBUMIN 3.7 GM/DL (3.2-4.5); ALKALINE PHOSPHATASE 67 U/L (40-136); BILIRUBIN,TOTAL 0.4 MG/DL (0.1-1.0); BUN/CREATININE RATIO 22; CALCIUM 9.3 MG/DL (8.5-10.1); CARBON DIOXIDE 26 MMOL/L (21-32); CHLORIDE 97 MMOL/L (98-107); CREATININE SERUM 1.03 MG/DL (0.60-1.30); GFR ESTIMATED > 60; GLUCOSE 83 MG/DL (70-105); POTASSIUM 4.2 MMOL/L (3.6-5.0); SODIUM 132 MMOL/L (135-145); TOTAL PROTEIN 6.5 GM/DL (6.4-8.2)
--- NOTE | 2020-05-23 12:42 | NUR ---
[facility]ARA DAUGHTER WAS CALLED WITH UPDATE AND INFORMED THAT PT NEEDS TO FOLLOW UP WITH DR. ALANIS WITHIN ONE WEEK OR SOONER
--- NOTE | 2020-05-23 12:43 | NUR ---
[facility] WAS CALLED AND INFORMED PT WAS READY TO BE DISCHARGED AND IS NEEDING A RIDE HOME.
[2020-05-23 12:45] VITALS: BP 146/62
== END 2020-05-23 12:45 | disposition home or self-care (01) ==
LOC: EDUNIT# 10:50 → ER FS 10:51
DX: R53.1 Weakness (principal); G20 Parkinson's disease; I25.2 Old myocardial infarction; I48.91 Unspecified atrial fibrillation; I10 Essential (primary) hypertension; N40.0 Benign prostatic hyperplasia without lower urinary tract symptoms; Z85.46 Personal history of malignant neoplasm of prostate; Z88.0 Allergy status to penicillin; Z79.01 Long term (current) use of anticoagulants
CPT/HCPCS: 36415; 80053; 85007; 85025; 99281

== ENCOUNTER 2020-05-29 18:37 | Emergency (ER) | payer MEDICARE ==
--- NOTE | 2020-05-29 19:09 | ED General ---
General Chief Complaint: Respiratory Problems Stated Complaint: SOB,FLU + Nursing Triage Note: brought in by EMS from [facility]. Has had a cough for 2 days. Tested positive for flu A yesterday and negative for covid. States he is having increasing weakness, constipation, and decreased urination. Nursing Sepsis Screen: Possible Sepsis Risk Source of Information: Patient Exam Limitations: No Limitations History of Present Illness Date Seen by Provider: May 29, 2020 Time Seen by Provider: 18:55 Initial Comments Here from [facility] by [place] with report of increasing weakness, constipation and decreased urination. Diagnosed with influenza A yesterday. Had negative Covid test. Has received first dose vaccination for his Covid series. Patient denies breathing problems. Has mild cough. EMS report other normal vital signs and they did start IV and initiated 1 L normal saline bolus which is continuing. Timing/Duration: 2-3 Days Severity: Mild Associated Systoms: Cough; No Headaches; Malaise; No Nausea/Vomiting, No Shortness of Air; Weakness Allergies and Home Medications Allergies Coded Allergies: Penicillins (Verified Allergy, Unknown, 04/25/19) Home Medications Apixaban 5 Mg Tablet, 5 MG PO BID TAKE 2 TABLETS BID X 7 DAYS, THEN 1 TABLET BID Prescribed by: SHERRI POWELL on 04/27/20632 Calcium Carbonate/Vitamin D3 1 Each Capsule, 2 EACH PO DAILY, (Reported) Diltiazem HCl 120 Mg Cap.er.24h, 120 MG PO DAILY Prescribed by: SHERRI POWELL on 04/27/20632 Docusate Sodium 100 Mg Capsule, 200 MG PO HS, (Reported) Doxazosin Mesylate 2 Mg Tablet, 2 MG PO DAILY, (Reported) Hyoscyamine 0.15 Mg Tablet, 0.375 MG PO 1-2 BID, (Reported) Multivitamins 1 Tab Tablet, 1 TAB PO DAILY, (Reported) Psyllium 1 Pkt Packet, 1 PKT PO DAILY, (Reported) Patient Home Medication List Home Medication List Reviewed: Yes Review of Systems Review of Systems Constitutional: see HPI; No chills, No fever; malaise, weakness EENTM: nose congestion; No throat pain Respiratory: cough; No short of breath Cardiovascular: No chest pain, No edema Gastrointestinal: constipation; No nausea, No vomiting Genitourinary: decreased output; No dysuria Musculoskeletal: no symptoms reported Skin: no symptoms reported Psychiatric/Neurological: No Symptoms Reported All Other Systems Reviewed Negative Unless Noted: Yes Past Ugrzxgm-Uevybi-Mrhtjm Hx Past Med/Social Hx: Reviewed Nursing Past Med/Soc Hx Patient Social History Alcohol Use: Denies Use Smoking Status: Former Smoker Former Smoker, Quit: May 05, 1968 2nd Hand Smoke Exposure: No Recent Infectious Disease Expo: No Recent Hopitalizations: No Immunizations Up To Date Tetanus Booster (TDap): Unknown Seasonal Allergies Seasonal Allergies: No Past Medical History Surgeries: Yes (Hernia Repair) Tonsillectomy Respiratory: No Cardiac: Yes Atrial Fibrillation, Heart Attack, Hypertension 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) Parkinson's Disease Reproductive Disorders: No Sexually Transmitted Disease: No Genitourinary: Yes Benign Prostatic Hyperpl Gastrointestinal: Yes Chronic Constipation, Irritable Bowel Musculoskeletal: Yes (ARTHRITIS) Arthritis Endocrine: No HEENT: No Cancer: Yes Prostate Did You Recieve Any Treatments: Yes What Type of Treatment Did You: Radiation Psychosocial: No Integumentary: No Blood Disorders: No Family Medical History Reviewed Nursing Family Hx Physical Exam Vital Signs Vital Signs - First Documented 05/29/20 18:44 Temp 35.9 Pulse 64 Resp 26 B/P (MAP) 108/64 (79) Pulse Ox 94 Capillary Refill : Less Than 3 Seconds Height, Weight, BMI Height: '" Weight: lbs. oz. kg; 24.00 BMI Method:Stated General Appearance: No Apparent Distress, Chronically ill HEENT: PERRL/EOMI, Pharynx Normal, Other (Mild to moderate nasal congestion) Neck: Non Tender, Supple Respiratory: No Accessory Muscle Use, No Respiratory Distress, Crackles (Few bibasilar); No Wheezing Cardiovascular: Regular Rate, Rhythm, No Murmur Gastrointestinal: Non Tender, Soft Back: Normal Inspection, No CVA Tenderness, No Vertebral Tenderness Extremity: Normal Range of Motion, Non Tender Neurologic/Psychiatric: Alert, Oriented x3 Skin: Normal Color, Warm/Dry Procedures/Interventions Suture Size: 4-0, 5-0 Progress/Results/Core Measures Suspected Sepsis Recent Fever Within 48 Hours: Yes Infection Criteria Present: Documented Infection New/Unexplained Altered Menta: No Sepsis Screen: Possible Sepsis Risk SIRS Temperature: Pulse: 64 Respiratory Rate: 26 Laboratory Tests 05/29/20 18:42: White Blood Count 6.1 Blood Pressure 108 /64 Mean: 79 Laboratory Tests 05/29/20 18:42: Creatinine 1.00, Platelet Count 215, Total Bilirubin 0.3 Results/Orders Lab Results Laboratory Tests Test 05/29/20 18:42 05/29/20 19:05 Range/Units White Blood Count 6.1 4.3-11.0 10^3/uL Red Blood Count 3.79 L 4.35-5.85 10^6/uL Hemoglobin 11.5 L 13.3-17.7 G/DL Hematocrit 35 L 40-54 % Mean Corpuscular Volume 92 80-99 FL Mean Corpuscular Hemoglobin 30 25-34 PG Mean Corpuscular Hemoglobin Concent 33 32-36 G/DL Red Cell Distribution Width 13.9 10.0-14.5 % Platelet Count 215 130-400 10^3/uL Mean Platelet Volume 10.0 7.4-10.4 FL Immature Granulocyte % (Auto) 2 % Neutrophils (%) (Auto) 61 42-75 % Lymphocytes (%) (Auto) 16 12-44 % Monocytes (%) (Auto) 19 H 0-12 % Eosinophils (%) (Auto) 1 0-10 % Basophils (%) (Auto) 1 0-10 % Neutrophils # (Auto) 3.7 1.8-7.8 X 10^3 Lymphocytes # (Auto) 1.0 1.0-4.0 X 10^3 Monocytes # (Auto) 1.2 H 0.0-1.0 X 10^3 Eosinophils # (Auto) 0.1 0.0-0.3 10^3/uL Basophils # (Auto) 0.1 0.0-0.1 10^3/uL Immature Granulocyte # (Auto) 0.1 0.0-0.1 10^3/uL Neutrophils % (Manual) 56 % Lymphocytes % (Manual) 15 % Monocytes % (Manual) 13 % Eosinophils % (Manual) 4 % Basophils % (Manual) 2 % Metamyelocytes % 1 % Band Neutrophils 9 % Sodium Level 124 *L 135-145 MMOL/L Potassium Level 4.5 3.6-5.0 MMOL/L Chloride Level 90 L 98-107 MMOL/L Carbon Dioxide Level 24 21-32 MMOL/L Anion Gap 10 5-14 MMOL/L Blood Urea Nitrogen 22 H 7-18 MG/DL Creatinine 1.00 0.60-1.30 MG/DL Estimat Glomerular Filtration Rate > 60 BUN/Creatinine Ratio 22 Glucose Level 116 H 70-105 MG/DL Calcium Level 8.4 L 8.5-10.1 MG/DL Corrected Calcium 8.8 8.5-10.1 MG/DL Total Bilirubin 0.3 0.1-1.0 MG/DL Aspartate Amino Transf (AST/SGOT) 16 5-34 U/L Alanine Aminotransferase (ALT/SGPT) < 5 0-55 U/L Alkaline Phosphatase 68 40-136 U/L C-Reactive Protein 3.71 H <0.50 MG/DL Total Protein 6.3 L 6.4-8.2 GM/DL Albumin 3.5 3.2-4.5 GM/DL Urine Color YELLOW Urine Clarity CLEAR Urine pH 5.5 5-9 Urine Specific Brewster >=1.030 1.016-1.022 Urine Protein NEGATIVE NEGATIVE Urine Glucose (UA) NEGATIVE NEGATIVE Urine Ketones TRACE H NEGATIVE Urine Nitrite NEGATIVE NEGATIVE Urine Bilirubin NEGATIVE NEGATIVE Urine Urobilinogen 0.2 < = 1.0 MG/DL Urine Leukocyte Esterase NEGATIVE NEGATIVE Urine RBC (Auto) NEGATIVE NEGATIVE Urine RBC 0-2 /HPF Urine WBC 0-2 /HPF Urine Squamous Epithelial Cells 0-2 /HPF Urine Crystals NONE /LPF Urine Bacteria TRACE /HPF Urine Casts PRESENT /LPF Urine Hyaline Casts 0-2 H /LPF Urine Mucus SMALL H /LPF Urine Culture Indicated NO My Orders Orders - JULISSA HUNTER MD Cbc With Automated Diff (05/29/20 19:00) Comprehensive Metabolic Panel (05/29/20 19:00) Ua Culture If Indicated (05/29/20 19:00) Crp Fs (05/29/20 19:00) Chest 1 View Ap/Pa Only (05/29/20 19:00) Manual Differential (05/29/20 18:42) Vital Signs/I&O 05/29/20 18:44 Temp 35.9 Pulse 64 Resp 26 B/P (MAP) 108/64 (79) Pulse Ox 94 Capillary Refill : Less Than 3 Seconds Blood Pressure Mean: 79 Progress Note : Progress Note Seen and evaluated. IV initiated by EMS. Normal saline 1 L bolus running. We will check basic labs, UA and chest x-ray. Patient states he is already feeling better with the first half liter of fluid. Monitor patient. 1951: Patient is overall doing better with heart rate of 62, O2 sat of 96% and blood pressure 150/65. Urine did show concentration and I do believe dehydration is a component. Sodium slightly low and he has trended that way. Fluid volume will help. No obvious acute pneumonia. Patient does have significant chronic lung disease with pulmonary fibrosis but does not seem to be changed. This episode seems to be more related to current influenza infection coupled with dehydration. Overall safe for discharge currently. Discharged home with return precautions. Patient verbalized understanding of instructions and agreement with plan. 2004: I did speak with an update the daughter regarding current assessment and plan. She is in full agreement. Diagnostic Imaging Diagonstic Imaging: Xray Plain Films/CT/US/NM/MRI: chest Comments NAME: ANANT GALE [facility] REC#: [id number] PT STATUS: REG ER : 1935 PHYSICIAN: JULISSA HUNTER MD ADMIT DATE: 05/29/20/ER FS Draft Date of Exam:05/29/20 CHEST 1 VIEW AP/PA ONLY INDICATION: Influenza and weakness Portable AP view of the chest is obtained with comparison made to the study of 04/27/2020. Coarse mixed interstitial and alveolar densities are again seen throughout the lungs. Findings are similar. No pneumothorax is identified. There is no definite pleural fluid. IMPRESSION: Coarse interstitial and alveolar densities may reflect chronic pneumonitis although underlying fibrosis could have similar appearance. Dictated on workstation # [id number] Dict: 05/29/201909 Trans: 05/29/201912 [facility] [id number] Interpreted by: GITA BURNS MD Electronically signed by: Departure Impression Primary Impression: Dehydration Additional Impression: Influenza A Disposition: HOME, SELF-CARE Condition: Stable Departure-Patient Inst. Decision time for Depature: 19:55 Referrals: SELFSIL MD (PCP/Family) Primary Care Physician Patient Instructions: Dehydration, Adult (DC), Flu Add. Discharge Instructions: All discharge instructions reviewed with patient and/or family. Voiced understanding. Continue home medications as previously prescribed. Follow-up with your doctor in a few days for recheck. Continue to drink plenty of fluids and get plenty of rest. Try to eat your regular diet. You may use Tylenol/acetaminophen as needed for fever or pain per package directions for per your standard orders. Return for worse pain, fever, vomiting, weakness, breathing problems or other co ncerns as needed. JULISSA HUNTER MD May 29, 2020 19:09
--- NOTE | 2020-05-29 19:13 | Diagnostic Imaging Report ---
INDICATION: Influenza and weakness Portable AP view of the chest is obtained with comparison made to the study of 04/27/2020. Coarse mixed interstitial and alveolar densities are again seen throughout the lungs. Findings are similar. No pneumothorax is identified. There is no definite pleural fluid. IMPRESSION: Coarse interstitial and alveolar densities may reflect chronic pneumonitis although underlying fibrosis could have similar appearance. Dictated by: Dictated on workstation # [id number]
[2020-05-29 19:16] LABS: BASOPHILS % (AUTO) 1 % (0-10); EOSINOPHILS % (AUTO) 1 % (0-10); HEMATOCRIT 35 % (40-54); HEMOGLOBIN 11.5 G/DL (13.3-17.7); LYMPHOCYTES % (AUTO) 16 % (12-44); MEAN CORPUSCULAR HEMOGLOBIN 30 PG (25-34); MEAN CORPUSCULAR HGB CONC 33 G/DL (32-36); MEAN CORPUSCULAR VOLUME 92 FL (80-99); MONOCYTES % (AUTO) 19 % (0-12); NEUTROPHILS % (AUTO) 61 % (42-75); PLATELET COUNT 215 10^3/uL (130-400); WHITE BLOOD COUNT 6.1 10^3/uL (4.3-11.0)
[2020-05-29 19:17] LABS: CLARITY,URINE CLEAR; COLOR,URINE YELLOW; PH,URINE 5.5 (5-9)
[2020-05-29 19:17] LABS: BASOPHILS # (AUTO) 0.1 10^3/uL (0.0-0.1); EOSINOPHILS # (AUTO) 0.1 10^3/uL (0.0-0.3); MONOCYTES # (AUTO) 1.2 X 10^3 (0.0-1.0); NEUTROPHILS # (AUTO) 3.7 X 10^3 (1.8-7.8)
[2020-05-29 19:18] LABS: BACTERIA,URINE TRACE /HPF; BILIRUBIN,URINE NEGATIVE (NEGATIVE); GLUCOSE, URINE (UA) NEGATIVE (NEGATIVE); HYALINE CASTS, URINE 0-2 /LPF; KETONES,URINE TRACE (NEGATIVE); LEUKOCYTE ESTERASE ,URINE NEGATIVE (NEGATIVE); NITRITE,URINE NEGATIVE (NEGATIVE); PROTEIN,URINE NEGATIVE (NEGATIVE); RBC,URINE 0-2 /HPF; SQUAMOUS EPITHELIAL CELL,UR 0-2 /HPF; WBC,URINE 0-2 /HPF
[2020-05-29 19:21] LABS: CHLORIDE 90 MMOL/L (98-107); POTASSIUM 4.5 MMOL/L (3.6-5.0); SODIUM 124 MMOL/L (135-145)
[2020-05-29 19:22] LABS: ALANINE AMINOTRANSFERASE < 5 U/L (0-55); ALBUMIN 3.5 GM/DL (3.2-4.5); ALKALINE PHOSPHATASE 68 U/L (40-136); BILIRUBIN,TOTAL 0.3 MG/DL (0.1-1.0); BUN/CREATININE RATIO 22; CALCIUM 8.4 MG/DL (8.5-10.1); CARBON DIOXIDE 24 MMOL/L (21-32); GFR ESTIMATED > 60; GLUCOSE 116 MG/DL (70-105); TOTAL PROTEIN 6.3 GM/DL (6.4-8.2)
[2020-05-29 19:44] LABS: BAND NEUTROPHILS 9 %; BASOPHILS % (MANUAL) 2 %; EOSINOPHILS % (MANUAL) 4 %; LYMPHOCYTES % (MANUAL) 15 %; METAMYELOCYTES % 1 %; MONOCYTES % (MANUAL) 13 %; NEUTROPHILS % (MANUAL) 56 %
[2020-05-29 20:15] VITALS: BP 150/70
== END 2020-05-29 20:15 | disposition home or self-care (01) ==
LOC: EDUNIT# 18:37 → ER FS 18:38
DX: E86.0 Dehydration (principal); J10.1 Influenza due to other identified influenza virus with other respiratory manifestations; I48.91 Unspecified atrial fibrillation; I25.2 Old myocardial infarction; I10 Essential (primary) hypertension; N40.0 Benign prostatic hyperplasia without lower urinary tract symptoms; Z85.46 Personal history of malignant neoplasm of prostate; Z87.891 Personal history of nicotine dependence; Z88.0 Allergy status to penicillin; Z79.01 Long term (current) use of anticoagulants
CPT/HCPCS: 36415; 71045; 80053; 81000; 85007; 85027; 86141